=== PATIENT | female | born 1945 | race Caucasian/White ===

== ENCOUNTER 2020-03-02 09:26 | Inpatient (IN) | payer OTHER ==
[~2020-03-02] VITALS: Ht 162.6 cm; Wt 89.4 kg
[2020-03-02] VITALS (7 sets, daily range): BP systolic 104–147; BP diastolic 32–61
--- NOTE | ~2020-03-02 | HC ---
[facility] [place] [address] CONSULTATION Name: STARR SMITH Room #: 438-P ADM IN M.R.#: [id number] Admission: 03/02/20 Attend Phys: Devonte Lares Discharge: Date of : 47 Report #: [id number] THIS REPORT FOR: cc: Philippe Whitley MD, Kirk D. MD Smithson, David G. MD ~ CC: Devonte Lozano DATE OF SERVICE: 03/05/2020 HISTORY OF PRESENT ILLNESS: The patient is a 74-year-old white female with a history of obesity, diabetes mellitus, hypertension, who had a mechanical fall at home, trying to go to the bathroom. She was noted to have a right hip intertrochanteric fracture, underwent right hip IM nail fixation on 03/03/2020 and is limited to toe touch weightbearing right lower extremity. Postoperatively, she has had problems with anemia from 9.3, preoperatively 7.7 and now is 6.9 today. She is being closely monitored in this regard. She also has a history of compulsive water drinking and her sodium was down to 124 with improvement to 130. We are seeing her in rehabilitation medicine consultation. PAST MEDICAL HISTORY: Prior medical history includes obesity, BMI 30-34.9, hypertension, diabetes mellitus, hyperlipidemia, history of compulsive water drinking as noted above. PAST SURGICAL HISTORY: Includes a prior left ankle fusion. ALLERGIES: No known drug allergies. MEDICATIONS: Please see the full medication listing. SOCIAL HISTORY: She lives in a house, 2 steps in, did not utilize an assistive device. is there and can assist her and there is also a daughter that is closely involved. She has a walk-in, bathtub per her history. REVIEW OF SYSTEMS: No complaints of chest pain, shortness of breath or abdominal discomfort. She has some obvious concerns with her anemia. PHYSICAL EXAMINATION: GENERAL: She is a 74-year-old obese, pleasant female, in no obvious distress. VITAL SIGNS: Last recorded temperature 97.6, pulse 85, respirations 11, blood pressure 155/63. She is alert, follows basic 1 step commands. HEENT: Facies are symmetric. EXTREMITIES: She has functional range of motion of both upper extremities. Strength is grade 4-/5 to 4/5. DTRs are trace to 1. In her lower extremities, [facility] [address] [place] [address] CONSULTATION Name: STARR SMITH Room #: 438-P [facility] IN M.R.#: [id number] Admission: 03/02/20 Attend Phys: Devonte Lares Discharge: Date of : 47 Report #: [id number] no focal calf swelling. She has decreased movement of that left ankle with prior fusion as expected. She is able to dorsiflex the right ankle. Dressing in place over the right hip with ice applied. Appears to have good strength of that left lower extremity. She is currently mod assist with sit to stand. ASSESSMENT: A 74-year-old white female with the following problem list: 1. Right hip intertrochanteric fracture, status post intramedullary nail 03/03/2020, toe-touch weightbearing. 2. Significant postoperative anemia, hemoglobin 6.9. 3. History of compulsive water drinking. Sodium was down to 124 with improvement to 130. 4. Exogenous obesity, BMI 30-34.9. 5. Diabetes mellitus. 6. Prior left ankle fusion. 7. Hypertension. 8. Elevated lipids. PLAN: Insurance will be checked regarding an acute in-hospital inpatient rehabilitation stay. The patient specifically does not desire to go to a facility and the goal would be to go back to the home setting at a wheelchair/walker level with her assisting and she has close involvement by her daughter. She needs to improve as far as basic transfers, getting from the bed into the wheelchair and functional mobility and ADLs. She also has the multiple medical comorbidities with the anemia, compulsive water drinking, electrolyte abnormalities with hyponatremia and other above comorbidities. Insurance will be checked regarding an acute in-hospital inpatient rehabilitation cuellar stay as above and we will be glad to follow along with you. By: [id number] Torey Rivas MD /[facility]
--- NOTE | ~2020-03-02 | O ---
[facility] [place] [address] OPERATIVE REPORT Name: STARR SMITH Room #: 438-P ADM IN M.R.#: [id number] Admission: 03/02/20 Attend Phys: Devonte Lares Discharge: Date of : 47 Report #: [id number] THIS REPORT FOR: cc: Philippe Whitley MD, Kirk D. MD Kneidel, Matthew T. MD ~ CC: Devonte Lozano DATE OF SERVICE: 03/02/2020 PREOPERATIVE DIAGNOSIS: Left hand abscess. POSTOPERATIVE DIAGNOSIS: Left hand abscess. PROCEDURE: Left hand irrigation and debridement. SURGEON: Alvaro Lozano MD MOBILE MANAGER: Niurka Hoffmann. ANESTHESIA: General. ESTIMATED BLOOD LOSS: 5 mL. DRAINS: No drains. TOURNIQUET TIME: 15 minutes. DESCRIPTION OF PROCEDURE: The patient brought to the operating room where she was placed under general anesthesia. Once under adequate general anesthesia, her left upper extremity was prepped and draped in sterile manner. The extremity was elevated and tourniquet placed to 250 mmHg. The patient had an entrance wound volar to her third metacarpophalangeal joint. This was then excised with the skin. Abundant purulence did emanate from the wound once it was entered. This did extend down to the flexor tendon sheath. Dissection was carried down to the flexor tendon sheath of both the middle and index fingers for this appeared to extend to, these were then subsequently cultured and debridement was achieved with a rongeur and of any necrotic tissue. The wound was irrigated copiously with normal saline. The proximal and distal limbs of the zigzag incision were then closed with 3-0 nylon suture and the wound was packed with sterile saline silk gauze. Wound was dressed with 4 x 4s, Sof-Rol and Jairo. Tourniquet was let down at 15 minutes. Fingers were pink and warm [facility] [address] [place] [address] OPERATIVE REPORT Name: STARR SMITH Room #: [address] [place] [address] IN .R.#: [id number] Admission: 03/02/20 Attend Phys: Devonte Lares Discharge: Date of : 47 Report #: [id number] with good capillary refill. There were no complications from the procedure. The patient tolerated the procedure well and was to her room without incident. By: [id number] Alvaro Lozano MD /nt
--- NOTE | ~2020-03-02 | O ---
[facility] [place] [address] OPERATIVE REPORT Name: STARR SMITH Room #: 438-P [facility] IN M.R.#: [id number] Admission: 03/02/20 Attend Phys: Devonte Lares Discharge: Date of : 47 Report #: [id number] THIS REPORT FOR: cc: Philippe Whitley MD, Kirk D. MD Kneidel, Matthew T. MD ~ CC: Devonte Lozano DATE OF SERVICE: 03/03/2020 PREOPERATIVE DIAGNOSIS: Right hip intertrochanteric and subtrochanteric femur fracture. POSTOPERATIVE DIAGNOSIS: Right hip intertrochanteric and subtrochanteric femur fracture. PROCEDURE: Right hip and femur intramedullary nail. SURGEON: Dr. Alvaro Lozano. DIE CUTTER OPERATOR: None. ANESTHESIA: General. ESTIMATED BLOOD LOSS: 100 mL. DRAINS: No drains. TOURNIQUETS: No tourniquets. COMPLICATIONS: No complications. DESCRIPTION OF PROCEDURE: The patient brought to the operating room where she was placed under general anesthesia. Once under adequate general anesthesia, she was transferred onto the operative table. The right lower extremity was then placed into traction and initial images were taken, noting an intertrochanteric as well as a subtrochanteric femur fracture. The right hip was then prepped and draped in sterile manner. Utilizing fluoroscopy for guidance, the tip of the greater trochanter was identified and subsequently a 3 cm incision proximal to this was made. The greater trochanter was entered with a guide pin and a curved cannulated awl was then placed across the greater trochanter of the femur. A guidewire was then placed from this down the shaft of the femur. Once in place, sequential reaming from 8.5 mm to 12.5 mm was achieved. A long 11 mm Synthes trochanteric femoral nail was then placed. [facility] [address] [place] [address] OPERATIVE REPORT Name: STARR SMITH Room #: 438-P [facility] IN .R.#: [id number] Admission: 03/02/20 Attend Phys: Devonte Lares Discharge: Date of : 47 Report #: [id number] Utilizing the outrigger guide, a separate 2 cm incision was made over the compression screw region and a guidewire was then placed in a center-center position in the femoral head. Subsequently, this was measured at 100 mm. The blade for the trochanteric femoral nail was then placed into the center-center position of the femoral head. Excellent fixation was achieved. This was locked into place proximally with the proximal locking screw and distally utilizing fluoroscopy for guidance, 2 locking screws were placed in the static position utilizing perfect circles to place these through 2 small stab incisions. Two transverse locking screws were placed. Excellent fixation and alignment was achieved as verified under fluoroscopy. The wounds were then irrigated copiously and closed with 2-0 Vicryl in subcutaneous tissues and lilian were used for the skin. The wounds were dressed with Xeroform, 4 x 4s, and sterile soft compressive dressing was placed. There were no complications from the procedure. The patient tolerated the procedure well and went to the recovery room without incident. By: [id number] Alvaro Lozano MD /nt
[~2020-03-02 09:26] MED LIST: AMARYL4 MG PO; AMLODIPINE BESYL5 M1 PER TUBE; ASPIRIN EC81 M1 PO; B12INJ; CATAPRES0.1 MG PO; CELEXA20 MG PO; CITRATE OF MAG296 ML PO; CLOBETASOL EMOL15 GM TP; DIFLUCAN150 M1 PO; FISH OIL 1,0001 EAC5; GLYBURID-METFO1 EAC3 PO; LEVOTHYROXINE 0.1 MG PO; LISINOPRIL40 MG PO; MACROBID 100 M100 M1 PO; METFORMIN HCL500 MG PO; MOBIC15 MG PO; NIACIN 100MG T100 M1; OMEPRAZOLE20 MG PO; PRAVACHOL20 MG PO; SYNTHROID100 MCG PO; UNICOMPLEX M TA1 TA1 PO; XANAX 0.5 MG0.5 MG PO
[2020-03-02 10:41] LABS: ABSOLUTE NEUTROPHILS 6.2 thou/uL (1.4-8.2); BASOPHILS 0.3 % (0.0-2.0); EOSINOPHILS 1.9 % (0.0-3.0); HEMATOCRIT 36.9 % (37.0-47.0); HEMOGLOBIN 12.2 gm/dL (12.0-15.0); LYMPHOCYTES 12.4 % (24.0-44.0); MCH 32.8 pg (26.0-34.0); MCHC 33.1 g/dL (28.0-37.0); MCV 99.1 fL (80.0-100.0); MONOCYTES 7.1 % (1.0-8.0); PLATELET COUNT 155 thou/uL (150-400); POLYS 78.3 % (36.0-66.0); RBC 3.72 mil/uL (4.20-5.00); RDW 13.2 % (10.5-14.5); WBC 7.9 thou/uL (4.0-11.0)
[2020-03-02 10:53] LABS: CALCIUM 8.6 mg/dL (8.5-10.1); CREATININE 0.9 mg/dL (0.6-1.0); POTASSIUM 4.7 mmol/L (3.5-5.1)
--- NOTE | 2020-03-02 15:37 | NUR ---
PT ARRIVED ON THE UNIT, WITH DAUGHTER AT BEDSIDE. PT VSS AT THIS TIME, PAIN CONTROLLED WITH IV PAIN ANALGESIC THAT WAS GIVEN IN THE ER. PT HAS A RANGEL CATHETER. NURSE EDUCATED ON HOW TO USE THE CALL BUTTON. FALL PRECAUTIONS IN PLACE. DR. PATEL INFORMED THAT PT IS ON THE UNIT. WILL CONTINUE TO MONITOR.
[2020-03-02 16:38] LABS: ALBUMIN 3.2 g/dL (3.4-5.0); DIRECT BILIRUBIN 0.1 mg/dL (<0.1-0.2); TOTAL BILIRUBIN 0.5 mg/dL (0.2-1.0); TOTAL PROTEIN 6.7 g/dL (6.4-8.2)
--- NOTE | 2020-03-03 01:22 | NUR ---
ASSESSED AT START OF SHIFT 1900. PT A&OX4 C/O PAIN IN RT HIP. MANAGED BY IV MORPHINE. PT NPO AFTER MIDNIGHT FOR SX TOMORROW. FOLLEY CATH IN PLACE. PT REPOSITIONED FOR COMFORT. FALL PREC IN PLACE AND CALL LIGHT IN REACH WILL CONT TO MONITOR.
[2020-03-03 05:06] LABS: GLYCOHEMOGLOBIN (HGB A1C) 8.4 % (4.8-5.6)
[2020-03-03 05:26] VITALS: BP 123/43
[2020-03-03 06:37] LABS: HEMATOCRIT 29.5 % (37.0-47.0); MCH 33.6 pg (26.0-34.0); MCHC 33.6 g/dL (28.0-37.0); MCV 99.9 fL (80.0-100.0); PLATELET COUNT 145 thou/uL (150-400); RBC 2.95 mil/uL (4.20-5.00); RDW 13.3 % (10.5-14.5); WBC 5.8 thou/uL (4.0-11.0)
[2020-03-03 06:44] LABS: HEMOGLOBIN 9.9 gm/dL (12.0-15.0)
[2020-03-03 06:53] LABS: ALBUMIN 2.6 g/dL (3.4-5.0); CALCIUM 7.8 mg/dL (8.5-10.1); CREATININE 1.4 mg/dL (0.6-1.0); MAGNESIUM 1.5 mg/dL (1.8-2.4); PHOSPHORUS 4.6 mg/dL (2.5-4.9); POTASSIUM 4.8 mmol/L (3.5-5.1); TOTAL BILIRUBIN 0.6 mg/dL (0.2-1.0); TOTAL PROTEIN 5.6 g/dL (6.4-8.2)
--- NOTE | 2020-03-03 09:09 | EKG ---
[facility] [place] [address] ELECTROCARDIOGRAM REPORT Name: STARR SMITH Room #: 438-P ADM IN M.R.#: [id number] Admission: 03/02/20 Attend Phys: Devonte Lares Discharge: Date of : 47 Report #: [id number] THIS REPORT FOR: cc: Philippe Whitley MD, Kirk D. MD Lundgren, Craig H. MD [facility] ~ THIS REPORT FOR: //name// [facility] ED Test Date: 2020-03-02 Test Time: 10:15:54 Pat Name: STARR SMITH Department: Room: 438 Gender: F Cylinder Handler: RAMIREZ : 1945 Requested By: Semaj Perry Order Number: [id number] MD: Seferino Johnson Measurements Intervals [place] Rate: 58 P: 47 ID: 191 QRS: -2 QRSD: 91 T: 55 QT: 434 QTc: 427 Interpretive Statements Sinus rhythm Poor R wave progression Compared to ECG 11/03/2013 13:16:52 No significant change was found Electronically Signed On 03-03-2020 9:09:01 CDT by Seferino Johnson [email or web address] <ELECTRONICALLY SIGNED> By: Seferino Johnson MD, [facility] 03/03/20 0909 1015 1015 Seferino Johnson MD, [facility] /EPI
[2020-03-03 11:27] LABS: ABSOLUTE NEUTROPHILS 3.2 thou/uL (1.4-8.2); ANISOCYTOSIS SLIGHT; POIKILOCYTOSIS SLIGHT
--- NOTE | 2020-03-03 12:32 | NUR ---
ASSESSMENT: CM REVIEWED CHART AND SPOKE WITH PATIENT. PT IS ALERT AND ORIENTED X4. PT IS HERE FOR SRUGERY ON HER RIGHT HIP. PT REPORTS SHE LIVES IN A HOUSE WITH HER . PT REPORTS 2 STEPS WITH HANDRAILS TO ENTER AND NO STEPS SHE HAS TO USE ONCE INSIDE. PT REPORTS SHE HAS ALOT OF DME AT HOME. SHE REPORTS HAVING A WALKER, CANE, AND BEDSIDE COMMODE. PT REPORTS THEY HAVE A WALK IN SHOWER WITH [employer] BARS. PT REPORTS SHE HAS BEEN TO TWO DIFFERENCE SNFS IN THE PAST ([facility] AND [facility]). PT REPORTS SHE PREFERS NOT TO GO TO A SNF IF SHE DOES NOT HAVE TO. PT REPORTS SHE HAS ALSO HAD [facility] IN THE [facility]ST. PT IS TO HAVE SURGERY AND WILL SEE HOW PATIENT PROGRESSES WITH PT/OT. CM WILL CONTINUE TO FOLLOW.
--- NOTE | 2020-03-03 13:06 | NUR ---
RD consult received stating "other". Admit with fall at home, right hip fracture. NPO for surgical intervention. Hx DM, A1C is 8.4 indicating poor control. Hospital BG 204-265 and currently with ss insulin orders. Wt is obese, BMI 33.8. Low nutrition risk and will followup for diet education needs or concerns once pt more stable from orthopedic surgery in 24-48 hrs
[2020-03-03 15:09] LABS: HEMATOCRIT 29.6 % (37.0-47.0); MCH 33.7 pg (26.0-34.0); MCHC 33.9 g/dL (28.0-37.0); MCV 99.3 fL (80.0-100.0); RBC 2.98 mil/uL (4.20-5.00); RDW 13.5 % (10.5-14.5); WBC 7.4 thou/uL (4.0-11.0)
[2020-03-03 15:18] LABS: CALCIUM 8.1 mg/dL (8.5-10.1); CREATININE 1.5 mg/dL (0.6-1.0); POTASSIUM 4.4 mmol/L (3.5-5.1)
[2020-03-03 15:24] LABS: ALBUMIN 2.7 g/dL (3.4-5.0); TOTAL BILIRUBIN 0.6 mg/dL (0.2-1.0); TOTAL PROTEIN 5.9 g/dL (6.4-8.2)
--- NOTE | 2020-03-03 19:11 | NUR ---
Assumed care of pt. at 0700. Pt. is calm and cooperative. She continues to be miserable from NPO status and lab values show an increased level of dehydration. Magnesium and NS bolus given to counter dehydration. Pt. requests Fentanyl for pain at approproiate times. Pt. was taken for surgery at 1500.
[2020-03-03 20:10] VITALS: BP 126/61
[2020-03-03 21:00] VITALS: BP 150/38
[2020-03-03 22:00] VITALS: BP 150/51
[2020-03-04] VITALS: BP 135/53
--- NOTE | 2020-03-04 03:32 | NUR ---
PT ARRIVED FROM SX @1999 A&OX4. DRESSING IN RT HIP C/D/I WITH ICE PACK IN PLACE FOR COMFORT. VSS. IV INTACT AND FLUIDS STARTED. ABX GIVEN. EVENING MEDS GIVEN AND PT CAMILLE IT WELL. BLOODSUGAR CHECKED WITH INSULIN COVERAGE. PT SLEPT THROUGH THE NIGHT ON 2L OF O2 POST OP. FALL PREC IN PLACE. SCD'S ON BLE NO TEDHOSE. WILL CONT TO MONITOR.
[2020-03-04 03:40] VITALS: BP 151/54
[2020-03-04 05:41] LABS: ABSOLUTE NEUTROPHILS 9.8 thou/uL (1.4-8.2); HEMATOCRIT 26.7 % (37.0-47.0); HEMOGLOBIN 9.3 gm/dL (12.0-15.0); LYMPHOCYTES 4.5 % (24.0-44.0); MCH 34.7 pg (26.0-34.0); MCV 99.2 fL (80.0-100.0); MONOCYTES 3.2 % (1.0-8.0); PLATELET COUNT 131 thou/uL (150-400); POLYS 92.3 % (36.0-66.0); RBC 2.69 mil/uL (4.20-5.00); RDW 13.1 % (10.5-14.5); WBC 10.6 thou/uL (4.0-11.0)
[2020-03-04 06:02] LABS: ALBUMIN 2.6 g/dL (3.4-5.0); CALCIUM 7.9 mg/dL (8.5-10.1); CREATININE 1.2 mg/dL (0.6-1.0); DIRECT BILIRUBIN 0.2 mg/dL (<0.1-0.2); MAGNESIUM 2.2 mg/dL (1.8-2.4); PHOSPHORUS 4.3 mg/dL (2.5-4.9); POTASSIUM 5.3 mmol/L (3.5-5.1); TOTAL BILIRUBIN 0.5 mg/dL (0.2-1.0); TOTAL PROTEIN 5.6 g/dL (6.4-8.2)
[2020-03-04 07:45] VITALS: BP 144/43
[2020-03-04 16:01] LABS: HEMATOCRIT 22.3 % (37.0-47.0); HEMOGLOBIN 7.7 gm/dL (12.0-15.0)
[2020-03-04 16:11] LABS: CALCIUM 8.1 mg/dL (8.5-10.1); CREATININE 1.3 mg/dL (0.6-1.0); POTASSIUM 4.6 mmol/L (3.5-5.1)
[2020-03-04 18:22] VITALS: BP 134/44
[2020-03-04 20:15] VITALS: BP 138/72
--- NOTE | 2020-03-04 20:23 | NUR ---
Assumed care of patient at 0700. Patient is calm and cooperative. Pain managed with medication. IV became infiltrated and was replaced by the IV Team. Fall precautions in place.
[2020-03-05 01:06] LABS: GLYCOHEMOGLOBIN (HGB A1C) 7.9 % (4.8-5.6)
--- NOTE | 2020-03-05 02:28 | NUR ---
ASSESSED AT START OF SHIFT 1900. PT C/O PAIN. MANAGED BY PO PAIN MEDS. IV INTACT AND FLUIDS INFUSING. PT NOW ON A 1000ML OF FLUID RESTRICTION PER ORDER. ICE PACK ON RT HIP FOR COMFORT. FALL PREC IN PLACE AND WILL CONT TO MONITOR
[2020-03-05 04:00] VITALS: BP 155/63
[2020-03-05 06:15] LABS: ABSOLUTE NEUTROPHILS 5.4 thou/uL (1.4-8.2); RBC 2.02 mil/uL (4.20-5.00); WBC 7.2 thou/uL (4.0-11.0)
[2020-03-05 06:17] LABS: BASOPHILS 0.1 % (0.0-2.0); EOSINOPHILS 2.4 % (0.0-3.0); HEMATOCRIT 20.1 % (37.0-47.0); HEMOGLOBIN 6.9 gm/dL (12.0-15.0); MCH 34.3 pg (26.0-34.0); MCHC 34.5 g/dL (28.0-37.0); MCV 99.3 fL (80.0-100.0); MONOCYTES 9.7 % (1.0-8.0); PLATELET COUNT 119 thou/uL (150-400); POLYS 74.8 % (36.0-66.0); RDW 13.3 % (10.5-14.5)
[2020-03-05 06:24] LABS: CALCIUM 7.8 mg/dL (8.5-10.1); CREATININE 0.8 mg/dL (0.6-1.0); MAGNESIUM 1.9 mg/dL (1.8-2.4); PHOSPHORUS 2.5 mg/dL (2.5-4.9); POTASSIUM 4.4 mmol/L (3.5-5.1)
--- NOTE | 2020-03-05 13:43 | NUR ---
ON-GOING ASSESSMENT: CM REVIEWED CHART. PTS HEMOGLOBIN IS 6.9. CM DISCUSSED POSSIBLE DISCHARGE PLANS PT/OT RECOMMENDING POST ACUTE CARE. CM DISCUSSED WITH PATIENT AND SHE DOES NOT WANT TO GO TO A SNF BUT IS AGREEABLE FOR ACUTE REHAB HERE AT [facility]. CM SPOKE WITH ATTENDING AND CONSULT WAS PLACED FOR [facility]. [facility] IS EVALUATING PATIENT AND THEY REPORT THEY FEEL PATIENT IS A GOOD CANIDATE AND THEY WILL START TO SEEK INSURANCE AUTH. CM WILL CONTINUE TO FOLLOW TO ASSIST NEEDED.
--- NOTE | 2020-03-05 14:53 | NUR ---
PATIENT SEEN THIS DATE BY DR. LUTHER FOR REHAB CONSULT. PATIENT IS A CANDIDATE FOR ACUTE REHAB STAY AND IS AGREEABLE WITH PLAN. AUTHORIZATION REQUEST INITIATED THIS DATE FROM PATIENT'S INSURANCE FOR [facility] ADMISSION. WILL AWAIT RESPONSE. THANK YOU FOR THIS REFERRAL.
--- NOTE | 2020-03-05 18:27 | NUR ---
PT IS AOX4, VSS, CURRENTLY GETTING BLOOD TRANSFUSION. PT CALLS APPROPRATELY, FALL PRECAUTIONS IN PLACE. PAIN CONTROLLED WITH ORAL ANALGESIC. WILL CONT. TO MONITOR.
[2020-03-05 20:58] VITALS: BP 152/57
--- NOTE | 2020-03-06 04:07 | NUR ---
PT AOX4. PT REPORTS PAIN IN RIGHT HIP. PT RECEIVING PRN PO NORCO Q4HR AND PRN IV FENTANYL Q4HR. PT DENIES SOB ON ROOM AIR. PT REMAINS ON BEDREST WITH FREQUENT REPOSITIONING ENCOURAGED. PT REPORTS 'I JUST WANT TO REST'. PROVIDED REASSURANCE PT SAFETY, GOALS, AND COMFORT ARE PRIORITY. PT REFUSING TURNS DUE TO REPORTS OF COMFORT. PT TOLERATING PO INTAKE OF FLUIDS WITHOUT ISSUE. SENSATION INTACT TO ALL EXTREMITIES. PT DENIES NUMBNESS AND TINGLING. PT ENCOURAGED TO NOTIFY STAFF FOR ALL NEEDS. CALL LIGHT WITHIN REACH, BED ALARM ON, BED IN LOWEST POSITION, WILL CONTINUE TO MONITOR.
[2020-03-06 04:25] VITALS: BP 155/71
[2020-03-06 05:36] LABS: HEMATOCRIT 24.1 % (37.0-47.0); HEMOGLOBIN 8.1 gm/dL (12.0-15.0); MCH 33.2 pg (26.0-34.0); MCHC 33.7 g/dL (28.0-37.0); MCV 98.5 fL (80.0-100.0); RBC 2.45 mil/uL (4.20-5.00); RDW 14.2 % (10.5-14.5); WBC 5.9 thou/uL (4.0-11.0)
[2020-03-06 06:35] LABS: CALCIUM 7.9 mg/dL (8.5-10.1); CREATININE 0.6 mg/dL (0.6-1.0); POTASSIUM 4.2 mmol/L (3.5-5.1)
[2020-03-06 07:20] VITALS: BP 149/50
--- NOTE | 2020-03-06 12:03 | NUR ---
ON-GOING ASSESSMENT: CM REVIEWED CHART AND SPOKE WITH ATTENDING. PT IS STABLE TO DISCHARGE TO [facility] REHAB TODAY PENDING INSURANCE AUTH. CM SPOKE WITH [facility] LIASON WHO REPORTS THEY ARE JUST AWAITING A DECISION FROM INSURANCE AT THIS TIME. CM WILL CONTINUE TO FOLLOW TO ASSIST NEEDED.
--- NOTE | 2020-03-06 14:47 | NUR ---
CALL RECEIVED FROM LINDSEY AT [facility]. PATIENT HAS BEEN DENIED ACUTE REHAB STAY. LINDSEY STATED THAT REQUEST LACKS SUPPORT FOR ACUTE REHAB STAY AND THAT SNF WAS RECOMMENDED. IF PHYSICIAN WOULD LIKE TO COMPLETE PEER TO PEER CALL . REPAIR MILLER INFORMED IN VOICEMAIL. THANK YOU FOR THIS REFERRAL.
[2020-03-06 16:10] VITALS: BP 153/63
--- NOTE | 2020-03-06 16:23 | NUR ---
on-going assessment: CM REVIEWED CHART. CM RECEIVED A CALL FROM ACUTE REHAB STATING THE INSURANCE HAS DENIED ACUTE REHAB AND RECOMMENDING SNF. AN OPTIONAL PEER TO PEER IS OFFERED IF REQUESTED. CM NOTIFIED ATTENDING. CM SPOKE WITH PATIENT AND SHE STATES ALTHOUGH SHE IS CONTEMPLATING IT SHE DOES FEEL SHE NEEDS TO GO TO A SNF AND WANTED A REFERRAL SENT TO [facility] WHERE SHE HAS BEEN BEFORE. CM NOTIFIED RONNY PEREZ AND FAXED REFERRAL [phone]. CM ALSO PROVIDED PT WITH A SNF LIST FOR HER TO REVIEW FURTHER. CM WILL CONTINUE TO FOLLOW TO ASSIST NEEDED.
--- NOTE | 2020-03-06 16:45 | NUR ---
PT IS AXO4, VSS, PAIN IN RIGHT HIP CONTROLLED WITH PAIN ANALGESIC. PT DRESSING ON RIGHT HIP WAS CHANGED AND REMAIN CDI. PT CALLS APPROPRIATELY, FALL PRECAUTIONS IN PLACE. IV IS SL/ CALL LIGHT IN PLACE. WILL CONTINUE TO MONITOR.
[2020-03-06 22:37] VITALS: BP 169/57
[2020-03-07 06:21] VITALS: BP 170/59
--- NOTE | 2020-03-07 07:52 | NUR ---
PT AOX4. PT REPORTS PAIN IN RIGHT HIP. PAIN NOTED TO WORSEN WITH MOVEMENT AND REPOSITIONING. PT RECEIVING PRN PO NORCO Q4HR AND PRN IV FENTANYL Q4HR. PT CONTINUES TO REST IN BED THROUGHOUT SHIFT. FREQUENT REPOSITIONING ENCOURAGED. PT REFUSING TURNS WHEN SLEEPING. PT TOLERATING PO INTAKE OF FLUIDS AND CARB CONTROLLED DIET. PT NOTED TO HAVE 2+ PITTING EDEMA TO RLE AND NONPITTING 1+ EDEMA TO LLE. PT ENCOURAGED TO NOTIFY STAFF FOR ALL NEEDS. CALL LIGHT WITHIN REACH, BED ALARM ON, BED IN LOWEST POSITION. WILL CONTINUE TO MONITOR.
[2020-03-07 08:21] VITALS: BP 148/46
[2020-03-07 10:33] LABS: HEMATOCRIT 25.4 % (37.0-47.0); HEMOGLOBIN 8.7 gm/dL (12.0-15.0)
[2020-03-07] MEDS ORDERED: KEFLEX500 M1 PO (10:34)
[2020-03-07] MEDS ORDERED: MIRALAX17 GM PO (10:34)
[2020-03-07] MEDS ORDERED: XANAX 0.5 MG0.5 MG PO (10:34)
[2020-03-07] MEDS ORDERED: LITE COAT ASPI325 MG PO (10:43)
[2020-03-07] MEDS ORDERED: PRINIVIL10 MG PO (10:43)
[2020-03-07] MEDS ORDERED: HYDROCODON-ACE1 EAC7 PO (10:43)
[2020-03-07] MEDS ORDERED: LANTUS SUBQ (10:43)
--- NOTE | 2020-03-07 13:10 | NUR ---
on-going assessment: CM SPOKE WITH PATIENT AND SHE IS AGREEABLE WITH [facility]. CM REACHED OUT TO CHRIS JEFFERSON AT [facility] WHO REPORTS THAT THEY HAVE INSURANCE AUTH AND CAN ACCEPT PATIENT TODAY. CM NOTIFIED BEDSIDE RN WELL PATIENT AND HER DAUGHTER WHO IS AT THE BEDSIDE. CHART COPY WAS ORDERED. CM FAXED D/C ORDERS TO [facility] AND CONFIRMED THEY RECEIVED IT. [facility] PROVIDED BEDSIDE RN WITH THE NUMBER FOR REPORT. TRANSPORTATION HAS BEEN ARRANGED FOR 1500. BEDSIDE RN AND PT ARE AWARE. PT REPORTS NO FURTHER NEEDS FROM . CASE CLOSED.
[2020-03-07 14:07] VITALS: BP 159/65
[2020-03-07] MEDS ORDERED: GLIPIZIDE 5 MG T5 MG PO (14:40)
--- NOTE | 2020-03-07 16:00 | NUR ---
Assumed care of pt. at 0700. Pt. is calm and cooperative. She is excited to discharge. Report was called to Vinayak Li and I spoke to Natalie OBRIEN to give report. Pt. was picked up by transport at 1600. Pt. left with all belongings and daughter.
== END 2020-03-07 16:00 | DRG 480 ==
LOC: ER 09:26 → 4S 11:06 → EROBS 11:06 → 4S 13:29
PROVIDERS: Anesthesiology; Emergency Medicine; Hospitalist; Internal Medicine; Orthopaedic Surgery Foot and Ankle Surgery; ADMIT Hospitalist; ATTEND Hospitalist
PROC: 0QH604Z Insertion of Internal Fixation Device into Right Upper Femur, Open Approach (ICD-10-PCS; principal; 2020-03-03)
PROC: 30233N1 Transfusion of Nonautologous Red Blood Cells into Peripheral Vein, Percutaneous Approach (ICD-10-PCS; 2020-03-05)
DX: S72.141A Displaced intertrochanteric fracture of right femur, initial encounter for closed fracture (principal); N17.0 Acute kidney failure with tubular necrosis; E43 Unspecified severe protein-calorie malnutrition; E87.1 Hypo-osmolality and hyponatremia; D62 Acute posthemorrhagic anemia; N39.0 Urinary tract infection, site not specified; S72.21XA Displaced subtrochanteric fracture of right femur, initial encounter for closed fracture; I10 Essential (primary) hypertension; E11.9 Type 2 diabetes mellitus without complications; E78.5 Hyperlipidemia, unspecified; E66.9 Obesity, unspecified; F41.9 Anxiety disorder, unspecified; K59.00 Constipation, unspecified; F32.9 Major depressive disorder, single episode, unspecified; M19.90 Unspecified osteoarthritis, unspecified site; Z20.828 Contact with and (suspected) exposure to other viral communicable diseases; E66.09 Other obesity due to excess calories; Z68.33 Body mass index [BMI] 33.0-33.9, adult; Z83.3 Family history of diabetes mellitus; Z80.1 Family history of malignant neoplasm of trachea, bronchus and lung; Z87.891 Personal history of nicotine dependence; Z79.82 Long term (current) use of aspirin; Z79.899 Other long term (current) drug therapy; Z47.89 Encounter for other orthopedic aftercare; W18.39XA Other fall on same level, initial encounter; Y93.89 Activity, other specified; Y92.091 Bathroom in other non-institutional residence as the place of occurrence of the external cause; Y99.8 Other external cause status
CPT/HCPCS: 10195; 50010; 50101; 50133; 50386; 50635; 51412; 51538; 52304; 56524; 57092; 5741; 5748; 57862; 57899; 62110; 62900; 70005

== ENCOUNTER 2020-07-10 16:44 | Inpatient (IN) | payer OTHER ==
[~2020-07-10] VITALS: Ht 162.6 cm; Wt 86.2 kg
[~2020-07-10 16:44] MED LIST changes: +ESOMEPRAZOLE MA20 MG PO; -FISH OIL 1,0001 EAC5; +FISH OIL 1,0001 EAC5 PO; +GLIPIZIDE 5 MG T5 MG PO; +HYDROCODON-ACE1 EAC7 PO; +KEFLEX500 M1 PO; +LANTUS SUBQ; +LITE COAT ASPI325 MG PO; +MIRALAX17 GM PO; -NIACIN 100MG T100 M1; +NIACIN 100MG T100 M1 PO; -OMEPRAZOLE20 MG PO; +PRINIVIL10 MG PO
[2020-07-10 16:59] VITALS: BP 139/57
[2020-07-10 20:03] LABS: ABSOLUTE NEUTROPHILS 7.1 thou/uL (1.4-8.2); BASOPHILS 0.1 % (0.0-2.0); EOSINOPHILS 0.5 % (0.0-3.0); HEMATOCRIT 31.4 % (37.0-47.0); HEMOGLOBIN 10.4 gm/dL (12.0-15.0); LYMPHOCYTES 10.1 % (24.0-44.0); MCH 31.8 pg (26.0-34.0); MCHC 33.1 g/dL (28.0-37.0); MCV 96.2 fL (80.0-100.0); MONOCYTES 6.7 % (1.0-8.0); PLATELET COUNT 184 thou/uL (150-400); POLYS 82.6 % (36.0-66.0); RBC 3.26 mil/uL (4.20-5.00); RDW 16.8 % (10.5-14.5); WBC 8.7 thou/uL (4.0-11.0)
[2020-07-10 20:12] LABS: CALCIUM 9.3 mg/dL (8.5-10.1); CREATININE 1.1 mg/dL (0.6-1.0); POTASSIUM 4.6 mmol/L (3.5-5.1)
[2020-07-10 20:50] VITALS: BP 139/57
[2020-07-10 21:03] LABS: URINE BILIRUBIN NEGATIVE (Negative); URINE BLOOD NEGATIVE (Negative); URINE CLARITY CLEAR; URINE COLOR YELLOW; URINE GLUCOSE-RANDOM* NEGATIVE (Negative); URINE KETONES 1+ (Negative); URINE NITRITE-REFLEX NEGATIVE (Negative); URINE PROTEIN (DIPSTICK) NEGATIVE (Negative); URINE UROBILINOGEN 0.2 E.U./dl (0.2-1.0)
[2020-07-10 21:04] LABS: URINE LEUKOCYTES-REFLEX 2+ (Negative)
[2020-07-10 21:47] VITALS: BP 139/57
[2020-07-10 21:48] LABS: HYALINE CASTS 0-3 Few /LPF (None Seen); MUCUS 0-3 Light strn/LPF (None Seen); SQUAMOUS None Seen /LPF (0-3); URINE RBC None Seen /HPF (0-2); URINE WBC-REFLEX 6-15 Few /HPF (0-5)
[2020-07-10 21:49] LABS: BACTERIA-REFLEX 1-9 Few /HPF (None Seen); CRYSTALS None Seen /LPF (None Seen)
[2020-07-10 21:50] VITALS: BP 146/56
[2020-07-11 04:08] VITALS: BP 166/62
[2020-07-11 05:50] LABS: INR 1.2; PROTIME 11.8 Seconds (9.3-11.4)
[2020-07-11 05:53] LABS: HEMATOCRIT 29.6 % (37.0-47.0); HEMOGLOBIN 9.8 gm/dL (12.0-15.0); MCH 31.6 pg (26.0-34.0); MCV 95.9 fL (80.0-100.0); RBC 3.09 mil/uL (4.20-5.00); RDW 16.9 % (10.5-14.5); WBC 7.1 thou/uL (4.0-11.0)
--- NOTE | 2020-07-11 05:59 | NUR ---
PATIENT ALERT AND ORIENTED X4. BADLY BRUISED FROM PREVIOUS FALLS AT HOME. NS INFUSING PER ORDER. COVID TEST FOR SURGERY DONE IN ED AND IS NEGATIVE. HAS BEEN NPO SINCE 2358 ON 07/10/20. BS MONITORED PER ORDER. RESTING QUIETLY. HAS BEEN MEDICATED X2 FOR PAIN. ICE PACK PLACED X2 PER REQUEST.
[2020-07-11 06:08] LABS: CALCIUM 8.8 mg/dL (8.5-10.1); CREATININE 0.8 mg/dL (0.6-1.0); POTASSIUM 3.9 mmol/L (3.5-5.1)
[2020-07-11 08:05] VITALS: BP 155/70
--- NOTE | 2020-07-11 12:54 | NUR ---
Assumed care of pt at 0700. Pt a&ox4. Pain controlled with prn pain meds. IVF infusing. Mckeon catheter in place. Surgery scheduled for tomorrow morning (07/12) at 0830. Pt and pt's family notified. Fall precautions in place. Call light within reach. Will continue to monitor.
--- NOTE | 2020-07-11 15:17 | EKG ---
[address] [place] [address] ELECTROCARDIOGRAM REPORT Name: STARR SMITH Room #: 444-P ADM IN M.R.#: [id number] Admission: 07/10/20 Attend Phys: Ga Raymundo MD Discharge: Date of : 47 Report #: [id number] [facility] ED Test Date: 2020-07-10 Test Time: 21:13:30 Pat Name: STARR SMITH Department: Room: 444 Gender: F It Account Manager: RADHA : 1945 Requested By: Sina Alvarado Order Number: [id number] MD: Seferino Johnson Measurements Intervals [place] Rate: 94 P: 58 VT: 165 QRS: -5 QRSD: 86 T: 226 QT: 350 QTc: 438 Interpretive Statements Sinus rhythm Poor R wave progression Compared to ECG 03/02/2020 10:15:54 No significant change was found Electronically Signed On 07-11-2020 15:17:48 ANTENNA SPECIALIST by Seferino Johnson [email or web address] <ELECTRONICALLY SIGNED> By: Seferino Johnson MD, [facility] 07/11/20 1517 12 12 Seferino Johnson MD, [facility] /EPI
[2020-07-11 16:40] VITALS: BP 156/70
[2020-07-11 19:04] VITALS: BP 177/77
[2020-07-12 03:38] VITALS: BP 170/73
--- NOTE | 2020-07-12 03:52 | NUR ---
ASSUMED PT CARE AT 1900.PT C/O PAIN ON HER HIP,MANAGED WITH MED.PT HAS BLACKEYES AND MULTIPLE BRUISING ON HER AR AND THIGH FROM HER FALL.RANGEL CATH TO DD.PT NPO AT THIS TIME FOR SURGERY LATER IN THE DAY.CALL LIGHT WITHIN REACH.
[2020-07-12 04:59] LABS: ALBUMIN 2.7 g/dL (3.4-5.0); CALCIUM 8.8 mg/dL (8.5-10.1); CREATININE 0.6 mg/dL (0.6-1.0); PHOSPHORUS 2.2 mg/dL (2.6-4.7); POTASSIUM 3.8 mmol/L (3.5-5.1)
[2020-07-12 08:17] VITALS: BP 188/85
[2020-07-12 11:48] VITALS: BP 129/61
[2020-07-12 12:01] VITALS: BP 123/62
[2020-07-12 14:11] LABS: ABSOLUTE NEUTROPHILS 13.2 thou/uL (1.4-8.2); BASOPHILS 0.1 % (0.0-2.0); HEMATOCRIT 28.2 % (37.0-47.0); HEMOGLOBIN 8.9 gm/dL (12.0-15.0); LYMPHOCYTES 3.1 % (24.0-44.0); MCH 30.7 pg (26.0-34.0); MCHC 31.7 g/dL (28.0-37.0); MCV 96.9 fL (80.0-100.0); MONOCYTES 3.2 % (1.0-8.0); PLATELET COUNT 175 thou/uL (150-400); POLYS 93.6 % (36.0-66.0); RBC 2.91 mil/uL (4.20-5.00)
[2020-07-12 15:55] VITALS: BP 105/56
--- NOTE | 2020-07-12 19:15 | NUR ---
PT CARE ASSUMED AT 0700. A&Ox4. WENT TO SURGERY AT 0827 BACK AT 1230. IV PATENT WITH NO REDNESS OR EDEMA, FLUIDS INFUSING. ABDUCTOR PILLOW IN PLACE. PAIN CONTROLLED WITH PAIN MEDICATION ON BOARD. RANGEL IN PLACE. ACHS WITH SLIDING SCALE IN PLACE. [facility], IN PLACE. FALL PROTOCOL IN PLACE. BRUISES ALL OVER THE BODY. LAST BM 07/10 CALL LIGHT IN REACH. WILL CONTINUE TO MONITOR.
[2020-07-12 20:23] VITALS: BP 126/52
--- NOTE | 2020-07-13 00:12 | NUR ---
PT C/O PAIN ON HER R HIP.MANAGED WITH MED.DRSG TO HER R HIP WITH DRY RED BLOOD.DRSG INTACT.ICE APPLIED TO THE SITE.PT VOICED CONCERN ABOUT THE AMOUNT OF INSULIN SHE IS RECEIVING AT THE HOSPITAL,PT STATED THAT SHE DOESN'T THINK THAT HER INSULIN SCHEDULE IS SAME WHAT SHE TAKES AT HOME.PT STATED THAT SHE HAS TALKED WITH HER DTR AND SHE WILL COME UP HERE LATER TODAY TO FIGURE THINGS OUT.PT REPOSITIONED WHILE IN BED.RANGEL CATH TO DD.PT RESTING ON HER BED AT THIS TIME.CALL LIGHT WITHIN REACH.
[2020-07-13 07:50] VITALS: BP 143/62
[2020-07-13 15:45] VITALS: BP 146/65
[2020-07-13 20:35] VITALS: BP 143/59
[2020-07-14 04:00] VITALS: BP 130/69
--- NOTE | 2020-07-14 05:36 | NUR ---
PT LYING IN BED. LORTAB PROVIDING PAIN RELIEF. RESTING COMFORTABLY. NO NEEDS VOICED. CALL LIGHT WITHIN REACH. FREQUENT OBSERVATION.
[2020-07-14 06:07] LABS: MCV 95.5 fL (80.0-100.0); RBC 1.8 mil/uL (4.20-5.00); RDW 16.4 % (10.5-14.5)
[2020-07-14 06:08] LABS: MCH 31.7 pg (26.0-34.0); MCHC 33.2 g/dL (28.0-37.0); WBC 7.7 thou/uL (4.0-11.0)
[2020-07-14 06:13] LABS: HEMATOCRIT 17.2 % (37.0-47.0); HEMOGLOBIN 5.7 gm/dL (12.0-15.0)
[2020-07-14 07:35] VITALS: BP 142/45
[2020-07-14 09:08] VITALS: BP 138/60; BP 142/60; BP 142/62; BP 144/58
--- NOTE | 2020-07-14 11:03 | NUR ---
Assumed care of pt at 0700. Pain controlled with prn pain meds. Dressing c/d/i. Blood transufion in progress. Family at bedside. Awaiting placement possibly tomorrow (07/14). Call light within reach. Will continue to monitor.
[2020-07-14 14:51] VITALS: BP 136/58; BP 138/54; BP 138/64; BP 139/56; BP 142/62
[2020-07-14 16:10] VITALS: BP 129/70
--- NOTE | 2020-07-14 16:54 | NUR ---
ASSESSMENT: CM REVIEWED CHART AND SPOKE WITH PT. PT WAS ADMITTED FROM HOME WHERE SHE LIVES WITH HER . PT HAS TWO STEPS TO ENTER AND NO STEPS ONCE INSIDE. PT HAS A WALKER/CANE/COMMODE. PT HAS BEEN TO [facility] IN THE PAST FOR SNF [facility] AND HAS HAD [facility] IN THE PAST. CM DISCUSSED ROLE. RECOMMENDATION IS FOR SNF. PT REPORTS SHE IS NOT WANTING TO GO TO [facility] AND LIKELY NOT [facility]. CONSULTED HAS BEEN PLACED FOR [facility] ACUTE REHAB. CM DISCUSSED WELL OTHER SNF OPTIONS IF CANNOT ACCEPT. PT IS RECEIVING ONE UNIT BLOOD TODAY. WILL AWAIT FURTHER INPUT FROM . CM ALSO PROVIDED DAUGHTER AND PT LIST OF SNF FACILITIES WHO ARE IN NETWORK FOR THEM TO REVIEW.
[2020-07-14 19:13] LABS: HEMATOCRIT 25.2 % (37.0-47.0)
[2020-07-14 19:15] VITALS: BP 156/50
[2020-07-14 19:27] LABS: HEMOGLOBIN 8.5 gm/dL (12.0-15.0)
--- NOTE | 2020-07-15 00:11 | NUR ---
PT WAS OBSERVED LYING IN BED WATCHING TV AT THE START OF SHIFT.DRS TO HER R HIP WITH DRY SEROSANGUINEOUS DRAINAGE.DRSG CHANGED.PT'S PAIN MANAGED WITH PO MED.HIP PRECAUTION IN PLACE.CALL LIGHT WITHIN REACH.
[2020-07-15 04:48] VITALS: BP 170/58
[2020-07-15 07:54] VITALS: BP 157/57
--- NOTE | 2020-07-15 08:31 | HC ---
[facility] [place] [address] CONSULTATION Name: STARR SMITH Room #: 444-P ADM IN M.R.#: [id number] Admission: 07/10/20 Attend Phys: Ga Raymundo MD Discharge: Date of : 46 Report #: [id number] THIS REPORT FOR: cc: Suzanna Templeton Shanna R. DO Deardorff, Valerie A. MD ~ DATE OF SERVICE: 07/11/2020 REASON FOR CONSULTATION: Right hip fracture. HISTORY OF PRESENT ILLNESS: The patient is a 75-year-old female who previously sustained a right intertrochanteric femur fracture that was treated with an intramedullary nail in February 2020. She reports spending a few weeks in rehab and then was at home doing fairly well using a walker, when her walker broke on Tuesday and she fell forward. She complained of significant right hip pain, but did not want to trouble her family, so she did not come in immediately. She came in yesterday with difficulty ambulating. Denied loss of consciousness and complains only of right hip pain. REVIEW OF SYSTEMS: NEUROLOGIC: Denies numbness or tingling. MUSCULOSKELETAL: Denies any other extremity pain, although does report left great toe swelling without significant pain and multiple bruises predominantly over her right upper extremity and periorbital areas bilaterally. PAST MEDICAL HISTORY: Significant for diabetes, hypertension, and obesity. ALLERGIES: MORPHINE. She also reports a SULFA ALLERGY. MEDICATIONS: Reported medications include [place]-3, Niacin, omeprazole, metformin, multivitamin, pravastatin, citalopram, clobetasol, and levothyroxine. PAST SURGICAL HISTORY: Apparently left hand abscess 03/02/2020, right hip fracture 03/03/2020, tonsillectomy, and cholecystectomy. SOCIAL HISTORY: She denies smoking, denies drinking alcohol. She lives with her . Previous to her hip fracture in February, did not use any ambulatory devices. 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 Before that, she worked at [employer]. LABORATORY STUDIES: Done on 07/11/2020 show a white blood cell count of 7.1, hemoglobin 9.8, hematocrit 29.6, and platelet count 167. INR is 1.2. Chemistry is grossly normal with a slightly low sodium at 129. COVID negative. PHYSICAL EXAMINATION: [address] [address] CONSULTATION Name: STARR SMITH Room #: 444-P [facility] IN ..#: [id number] Admission: 07/10/20 Attend Phys: Ga Raymundo MD Discharge: Date of : 46 Report #: [id number] GENERAL: The patient is alert and oriented. She interacts appropriately. She is a well-developed and well-nourished female. She is lying in her hospital bed. VITAL SIGNS: Most recent vital signs show a temperature of 36.6 degrees centigrade, heart rate 114, respiratory rate 18, blood pressure 155/70, and pulse oximetry is 97% on room air. EXTREMITIES: Examination of bilateral upper extremities, the skin is clean, dry, and intact. She has a significant amount of ecchymosis on her entire right upper extremity, patchy ecchymosis on her left. Gross strength and stability is intact. She has brisk capillary refill to all digits. She grossly moves her bilateral shoulders, elbows, forearms, wrists and hands without pain. There is no tenderness to palpation throughout the entire bilateral upper extremities. Right lower extremity examination, sensation is intact to light touch throughout. She has brisk capillary refill. There is no tenderness to palpation throughout the right knee, leg, ankle, or foot. No pain with range of motion of the right knee, leg, ankle or foot. She does have some patchy small areas of ecchymosis on the right knee. These are nontender. She has grossly normal strength and stability. She has significant pain with attempted range of motion. Left lower extremity exam, skin is clean, dry, and intact. She has a significant amount of ecchymosis on her great toe without tenderness. Grossly normal strength and stability. No tenderness to palpation throughout the entire left lower extremity. No pain with range of motion of the knee, leg, ankle, or foot or hip. Strength and stability is grossly intact. IMAGING: AP pelvis shows a cephalomedullary device with what appears to be a healed intertrochanteric femur fracture with what appears to be a new femoral neck fracture and superior cutout of the implant. Lateral of the hip and an oblique of the distal femur shows a long cephalomedullary nail with locking screws that appear to be well positioned, although this is a suboptimal x-ray. 3 views of the left foot show a distal nail, which appears to be holding a tibiotalar fusion with some loosening. There may be a chronic nonunion. There does not appear to be any great toe fracture. IMPRESSION AND PLAN: Right femoral neck fracture with hardware cutout. The recommended treatment would be removal of the hardware and hemiarthroplasty. We discussed the typical procedure as well as postoperative course. The risks, benefits, alternatives, and complications were discussed including, but not limited to, blood clots, decreased ambulatory level, infection, damage to vessels or nerves, hardware problems, leg length inequality, and hip dislocation. Questions were encouraged and answered to the best of my ability. [facility] [address] [place] [address] CONSULTATION Name: STARR SMITH Room #: 444-P ADM IN M.R.#: [id number] Admission: 07/10/20 Attend Phys: Ga Raymundo MD Discharge: Date of : 46 Report #: [id number] We discussed most likely this will be performed tomorrow by Dr. Lozano or myself. <ELECTRONICALLY SIGNED> By: Nisreen Luciano MD 07/15/20 0831 1252 1406 Nisreen Luciano MD /nt
[2020-07-15] MEDS ORDERED: ENOXAPARIN40 MG/0.1 SUBQ (08:33)
[2020-07-15] MEDS ORDERED: NORCO 7.5-3251 EACH PO (08:34)
--- NOTE | 2020-07-15 09:39 | NUR ---
Assumed care of pt at 0700. Hg 8.5 after 2 units infused yesterday. A&ox4. Q2h turn. Possible d/c to rehab ot skilled today. Pain controlled with prn pain meds. Dressing c/d/i. Call light within reach. Fall precautions in place. Will continue to monitor.
--- NOTE | 2020-07-15 11:35 | NUR ---
PT IS A CANDIDATE FOR [facility]. BEGAN INSURANCE AUTHORIZATION PROCESS
--- NOTE | 2020-07-15 13:20 | NUR ---
ON-GOING ASSESSMENT: [facility] REVIEWED CHART AND SPOKE WITH ATTENDING. PT IS STABLE FOR DISCHARGE. [facility] HAS EVALUATED PT AND REPORTS THEY HAVE STARTED THE AUTH PROCESS AND HAD SPOKEN WITH PTS DAUGHTER. [facility] REACHED OUT TO PTS DAUGHTER LATOYA AND SHE HAS REVIEWED SNF LIST AND REQUESTED THAT HER TOP TWO SNFS ARE [facility] AND [facility]. SHE STATED SHE WANTS TO SEE IF PTS INSURANCE WILL APPROVE FIRST THAT IS HER FIRST CHOICE AND THEN IF NOT WOULD CONSIDER THOSE SNFS. [facility] NOTIFIED ATTENDING. [facility] ALSO FAXED REFERRAL TO [facility]. AWAITING FURTHER INPUT FROM [facility] PENDING AUTH AT THIS TIME. BEDSIDE RN AWARE.
[2020-07-15 16:01] VITALS: BP 141/68
[2020-07-15 19:24] VITALS: BP 134/54
--- NOTE | 2020-07-16 03:35 | NUR ---
ASSUMED PT CARE AT 1900.NEW OPEN AREA TO HER L BUTTOCK,Sherine DOUGLAS APPLIED.PT REPOSITIONED WHILE IN BED.DRSG TO HER R HIP WITH SEROSANGUINEOUS DRAINAGE. DRSG CHANGED.PT UP TO THE [facility] WITH ASSIST X1/GAIT BELT AND WALKER.PT REF TO TAKE HER SHORT ACTING INSULIN TONIGHT,SHE STATED THAT SHE DOES NOT TAKE THEM AT NIGHT.PT AGREED TO TAKE ONLY 8UNITS OF LANTUS AT HS.SHE STATED THAT SHE ONLY TAKES LANTUS AT HS.PT'S PAIN MANAGED WITH PO MED.PT SLEEPING ON HER BED AT THIS TIME.CALL LIGHT WITHIN REACH.
[2020-07-16 07:30] VITALS: BP 161/61
--- NOTE | 2020-07-16 08:38 | NUR ---
ASSUMED CARE OF PATIENT SHE IS ALERT XS 4 NO PAIN OR RESP DISTRESS. TOOK AM MEDS PT IS WALKING WITH THERAPY.
[2020-07-16 10:21] LABS: HEMATOCRIT 27.9 % (37.0-47.0); HEMOGLOBIN 9.3 gm/dL (12.0-15.0)
--- NOTE | 2020-07-16 10:27 | NUR ---
ON-GOING ASSESSMENT: [facility] REVIEWED CHART. [facility] REACHED OUT TO LIAGAVINO AT [facility] WHO IS NOW STATING THAT DUE TO ALL HER REFERRALS SHE WILL NOT HAVE A SNF BED AVAILABLE FOR PATIENT LIKELY UNTIL 2-3 DAYS. [facility]ASE REACHED OUT TO PTS DAUGHTER WHO WANTED TO SEE IF [facility] CAN ACCEPT HER OR WOULD LIKE [facility]AL [facility]. [facility] SPOKE WITH [facility] WHO REPORTS THEY RECEIVED REFERRAL BUT UNSURE OF THEIR BED STATUS AND WILL GET BACK TO [facility]. CM ALSO FAXED REFERRAL TO [facility] AND AWAITING INPUT AT THIS TIME.
--- NOTE | 2020-07-16 11:51 | NUR ---
COVID 19 TEST TO RIGHT NARE AT THIS TIME TAKEN TO LAB.
--- NOTE | 2020-07-16 15:45 | NUR ---
ON-GOING ASSESSMENT: [facility]ASE SPOKE WITH SOWMYA JEFFERSON AT [facility] WHO REPORTS THEY CAN ACCEPT PT TO SNF TODAY BUT NEED ANOTHER NEGATIVE COVID TEST PRIOR TO ACCEPTING. CM NOTIFIED BEDSIDE RN. AWAITING COVID TEST RESULT. TENTATIVE D/C SCHEDULED FOR 0. CM FAXED D/C ORDERS TO [facility] AND CONFIRMED THEY RECEIVED IT. CHART COPY WAS ORDERED. CM NOTIFIED PT AND HER DAUGHTER LATOYA. AWAITING COVID RESULT AT THIS TIME. BEDSIDE RN HAS THE NUMBER FOR REPORT.
[2020-07-16 15:50] VITALS: BP 130/50
--- NOTE | 2020-07-16 20:03 | NUR ---
SURGICAL DRESSING TO RIGHT HIP CHANGED 2 SITES TOP SITE WITH 39 VALENTE AREA IS BRUISED AND WEEPING. LOWER SITE HAS 11 VALENTE AND AREA IS BRUISED BUT WELL APPROXIMATED. PT IS PLEASANT AND COOPERATIVE WITH CARE.
[2020-07-16 20:19] VITALS: BP 137/23
--- NOTE | 2020-07-17 05:12 | NUR ---
PT'S DRSG CHANGED AT START OF SHIFT.DRSG ON HER R HIP OBSERVED TO HAVE SEROSANGUINEOUS DRAINAGE.PT C/O PAIN,MANGED WITH MED.PT LOOKING FORWARD TO BE DC'D LATER IN THE DAY.CALL LIGHT WITHIN REACH.
[2020-07-17 08:40] VITALS: BP 149/61
[2020-07-17 08:41] VITALS: BP 149/61
--- NOTE | 2020-07-17 09:01 | NUR ---
ON-GOING ASSESSMENT: CM REVIEWED CHART. PTS COVID TEST CAME BACK NEGATIVE AND CM NOTIFIED [facility]. TRANSPORTATION HAS BEEN ARRANGED FOR 1100. CM NOTIFIED PT AND BEDSIDE RN. PT REPORTS HER DAUGHTER IS ON HER WAY HERE [place] IS GOING TO NOTIFY HER. FACILITY ALREADY HAS ORDERS AND CHART COPY WAS MADE. CASE CLOSED.
[2020-07-17] MEDS ORDERED: FREESTYLE LIBR1 EAC2 MISCELL (09:39)
--- NOTE | 2020-07-24 15:36 | O ---
[facility] [place] [address] [address] OPERATIVE REPORT Name: STARR SMITH Room #: 444-P [facility] IN M.R.#: [id number] Admission: 07/10/20 Attend Phys: Ga Raymundo MD Discharge: 07/17/20 Date of : 47 Report #: [id number] THIS REPORT FOR: cc: Suzanna Templeton Shanna R. DO Kneidel, Matthew T. MD ~ DATE OF SERVICE: 07/12/2020 PREOPERATIVE DIAGNOSES: 1. Right femoral neck fracture. 2. Right femur retained hardware. POSTOPERATIVE DIAGNOSES:. 1. Right femoral neck fracture. 2. Right femur retained hardware. PROCEDURE: 1. Right femur hardware removal. 2. Right hip hemiarthroplasty. SURGEON: Dr. Alvaro Lozano. CARPENTER HELPER: Nisreen Luciano MD ANESTHESIA: General. ESTIMATED BLOOD LOSS: 200 mL. DRAINS: No drains. TOURNIQUETS: No tourniquets. COMPLICATIONS: No complications. DESCRIPTION OF PROCEDURE: The patient brought to the operating room where she was placed under general anesthesia. Once under adequate general anesthesia, she was placed onto the operative table in a lateral decubitus position. The patient's right hip was then prepped and draped in a sterile manner. The extremity was then approached through a 14 cm total lateral hip incision. This was extended down to the tensor fascia, which was then incised exposing the posterior aspect of the hip. The posterior approach was then utilized elevating the piriformis along with the short external rotators to allow access to the hip. The proximal portion of the femoral nail was then identified with a K-wire and subsequently the locking for the blade that was in the nail was then released and the blade was then removed with an extractor from the [employer] set. [facility] [address] [place] [address] OPERATIVE REPORT Name: DIANASTARR LOGANEN Room #: 444-P [facility] IN M.R.#: [id number] Admission: 07/10/20 Attend Phys: Ga Raymundo MD Discharge: 07/17/20 Date of : 47 Report #: [id number] Distally, two transverse locking screws were then removed utilizing a 4 cm incision overlying and then exposing them and removing them with the large fragment screwdriver. Once this was complete, the nail was then easily extracted through the greater trochanter. The wounds were then irrigated copiously. The hip was then dislocated and the femoral head extracted with a rongeur. The femoral neck was cut to length with an oscillating saw and a reamer was then used to open the canal. This was taken up to a size 9 reamer. The femur was then broached to a size 8 stem. The femur was then prepared for cementation after trialing a size 46 head. The femur was then prepared for cementation and subsequently the cement and the size 8 femoral stem were placed. The +0 neck and 46 mm femoral head were then placed. The hip was then reduced. Satisfactory reduction was achieved. The capsular layer was closed with #2 FiberWire. #5 FiberWire was used to repair the piriformis back to its position in the piriformis fossa. The wound was irrigated once again copiously and closed with #1 Vicryl in the deep fascia, 2-0 Vicryl in subcutaneous tissues and lilian were used for the skin. Wound was dressed with Xeroform, 4 x 4s, and sterile soft compressive dressing was placed. There were no complications from the procedure. The patient tolerated the procedure well and was taken to recovery room without incident. <ELECTRONICALLY SIGNED> By: Alvaro Lozano MD 07/24/20 1536 [id number] Alvaro Lozano MD /nt
== END 2020-07-17 11:35 | DRG 521 ==
LOC: ER 16:44 → 4S 20:45 → EROBS 20:45 → 4S 21:48
PROVIDERS: Emergency Medicine; Hospitalist; Nurse Practitioner Family; ADMIT Internal Medicine; ATTEND Internal Medicine
DX: S72.001A Fracture of unspecified part of neck of right femur, initial encounter for closed fracture (principal); E43 Unspecified severe protein-calorie malnutrition; N39.0 Urinary tract infection, site not specified; M48.56XA Collapsed vertebra, not elsewhere classified, lumbar region, initial encounter for fracture; E87.1 Hypo-osmolality and hyponatremia; I10 Essential (primary) hypertension; E66.9 Obesity, unspecified; E78.5 Hyperlipidemia, unspecified; F41.9 Anxiety disorder, unspecified; F32.9 Major depressive disorder, single episode, unspecified; E03.9 Hypothyroidism, unspecified; E11.42 Type 2 diabetes mellitus with diabetic polyneuropathy; D64.9 Anemia, unspecified; M81.0 Age-related osteoporosis without current pathological fracture; K21.9 Gastro-esophageal reflux disease without esophagitis; Z20.822 Contact with and (suspected) exposure to COVID-19; Z79.899 Other long term (current) drug therapy; Z88.6 Allergy status to analgesic agent; Z68.32 Body mass index [BMI] 32.0-32.9, adult; Z90.49 Acquired absence of other specified parts of digestive tract; Z87.891 Personal history of nicotine dependence; Z79.82 Long term (current) use of aspirin; W18.39XA Other fall on same level, initial encounter; Y93.89 Activity, other specified; Y92.89 Other specified places as the place of occurrence of the external cause; Y99.8 Other external cause status
CPT/HCPCS: 10195; 50101; 50382; 50414; 50939; 51057; 51130; 51225; 51226; 51412; 53000; 56525; 56530; 56531; 57103; 57117; 62110; 62900; 70005

== ENCOUNTER 2020-07-21 08:56 | Inpatient (IN) | payer OTHER ==
[~2020-07-21] VITALS: Ht 167.6 cm; Wt 84.6 kg
--- NOTE | ~2020-07-21 | EMS ---
[address] [address] EMS Patient Care Report Name: STARR SMITH Room #: REG CHAVO Harrell#: [id number] Admission: 07/21/20 Attend Phys: Discharge: Date of : 46 Report #: [id number] THIS REPORT FOR: //name// Report Transmitted: 07/21/2020 09:19 EMS Care Summary [place], [place]/[facility] Incident [id number] @ 07/21/2020 08:29 Incident Location [address] [place] [address] E11 Patient STARR SMITH Female, 75 Years 1945 Patient Address [address] [place] [address] Patient History Hypertension (HTN),Gastro-Esophageal Reflux Disease (GERD),Morbid Obesity,Depression,Osteoarthritis,Anxiety,Hip Fracture,Hypothyroidism,Type 2 Diabetes, Patient Allergies Morphine, Patient Medications Pravastatin, Glipizide, Lisinopril, Citalopram, Webster, Levothyroxine, Insulin, Enoxaparin, Chief Complaint AMS Disposition Transported No Lights/[place] Dispatch Reason Unconscious/Fainting Transported To [facility] Narrative M528, P36 responded immediately to the scene of an Unconscious. Arrived on [address] [address] EMS Patient Care Report Name: STARR SMITH Room #: REG Yasmeen.#: [id number] Admission: 07/21/20 Attend Phys: Discharge: Date of : 47 Report #: [id number] scene and staff directed us to pt's room. Upon arrival, pt found with eyes open but non-verbal. Staff nurse reports she has never had this pt before and can provide minimal information about pt. She does report pt is normally A&OX4 and can carry on full conversation. She cannot articulate when the change in mentation occurred other than nursing notes report pt being verbal last night. Pt was transferred to facility for rehab after hip surgery secondary to a fall. Cot next to bed and pt moved across via sheet pull. Secured on via straps, rails up, then pt moved out to ambulance. Primary ALS assessment performed. Vitals established. D-stick acquired. EKG applied. 20g saline lock failed in R wrist. Transport to [facility] then initiated. Contacted with a short ETA, and report given. Pt has no appreciable changes during transport. Arrived at and patient to ER 06. Report to RN then care relased. Initial Vitals @08:51P: 119,R: 32,CO: 2,SpO2: 92, @08:45P: 121,R: 15,BP: 164/72,Pain: 0/10,GCS: 10,Glucose: 137,SpO2: 94,Revised Trauma: 11, Assessments @08:44MENTAL:Confused,Other,SKIN:Hot,HEENT:LUNG SOUNDS:ABDOMEN:PELVIS//GI:Pelvis GUOther,EXTREMITIES:PULSE:NEURO:Other, Impression Altered Mental Status Procedures @08:44ALS AssessmentResponse: UnchangedSucceeded@08:48Saline Lock 0cc (20 ga) Site: Forearm-RightResponse: UnchangedFailed@08:463-Lead ECGResponse: UnchangedSucceeded Timeline 08:27,Call Received 08:27,Dispatch Notified 08:29,Dispatched 08:31,En Route 08:35,On Scene 08:36,At Patient 08:44,ALS Assessment,Response: UnchangedSucceeded, 08:45,BP: 164/72 M,PULSE: 121,RR: 15 R,SPO2: 94 Ox,ETCO2: ,B,PAIN: 0,GCS: 10, 08:46,3-Lead ECG,Response: UnchangedSucceeded, [address] [address] EMS Patient Care Report Name: STARR SMITH Room #: REG [facility].#: [id number] Admission: 07/21/20 Attend Phys: Discharge: Date of : 47 Report #: [id number] 08:48,Saline Lock 0cc 20 ga Site: Forearm-Right,Response: UnchangedFailed, 08:50,Depart Scene 08:51,BP: / M,PULSE: 119,RR: 32 R,SPO2: 92 Ox,ETCO2: ,BG: ,PAIN: ,GCS: , 08:53,At Destination 09:10,Call Closed Disclaimer v1.1 Copyright 2020 [employer] This EMS Care Summary contains data elements from the applicable legal record (which may be displayed differently). It is designed to provide pertinent information for the following purposes: continuity of care, clinical quality, and state data reporting. The complete legal record is available to ED staff and administrators of the receiving hospital in [facility] Patient Tracker. All data is provided "as is."
[~2020-07-21 08:56] MED LIST changes: +ENOXAPARIN40 MG/0.1 SUBQ; +FREESTYLE LIBR1 EAC2 MISCELL; +NORCO 7.5-3251 EACH PO
[2020-07-21 08:57] VITALS: BP 166/52
[2020-07-21 09:39] LABS: ABSOLUTE NEUTROPHILS 8.2 thou/uL (1.4-8.2); BASOPHILS 0.6 % (0.0-2.0); HEMATOCRIT 22.1 % (37.0-47.0); HEMOGLOBIN 7.4 gm/dL (12.0-15.0); LYMPHOCYTES 2.7 % (24.0-44.0); MCH 31.6 pg (26.0-34.0); MCHC 33.5 g/dL (28.0-37.0); MCV 94.5 fL (80.0-100.0); MONOCYTES 5.4 % (1.0-8.0); PLATELET COUNT 228 thou/uL (150-400); POLYS 91.3 % (36.0-66.0); RBC 2.34 mil/uL (4.20-5.00); RDW 15.5 % (10.5-14.5)
[2020-07-21 09:48] LABS: CALCIUM 7.7 mg/dL (8.5-10.1); CREATININE 0.7 mg/dL (0.6-1.0); POTASSIUM 3.9 mmol/L (3.5-5.1)
[2020-07-21 09:50] LABS: URINE BILIRUBIN NEGATIVE (Negative); URINE BLOOD 2+ (Negative); URINE CLARITY HAZY; URINE COLOR YELLOW; URINE GLUCOSE-RANDOM* NEGATIVE (Negative); URINE KETONES 1+ (Negative); URINE LEUKOCYTES-REFLEX 1+ (Negative); URINE NITRITE-REFLEX POSITIVE (Negative); URINE PROTEIN (DIPSTICK) 2+ (Negative); URINE SPECIFIC GRAVITY 1.015 (1.005-1.035)
[2020-07-21 09:51] LABS: APTT 28.5 Seconds (24.5-32.8); INR 1.1
[2020-07-21 09:54] LABS: ALBUMIN 1.9 g/dL (3.4-5.0); TOTAL BILIRUBIN 0.8 mg/dL (0.2-1.0); TOTAL PROTEIN 4.8 g/dL (6.4-8.2)
[2020-07-21 10:03] LABS: CASTS None Seen /LPF (None Seen); CRYSTALS None Seen /LPF (None Seen); SQUAMOUS 0-3 Few /LPF (0-3); URINE RBC 0-2 Rare /HPF (0-2)
[2020-07-21 10:04] LABS: BACTERIA-REFLEX >30 Many /HPF (None Seen)
--- NOTE | 2020-07-21 10:06 | NUR ---
SPOKE WITH DAUGHTER HEATHER AND GAVE UPDATE ON PT.
[2020-07-21] MEDS ORDERED: IMODIUM A-D2 M1 PO (10:11)
[2020-07-21 10:55] LABS: BE(vivo) 1.1 mmol/L (-2 to +3); HCO3 23.5 mmol/L (22.0-26.0); PCO2 29.1 mmHg (35.0-45.0); PO2 90.5 mmHg (80.0-100.0); pH 7.525 (7.360-7.450); sO2 97.7 % (92.0-98.0)
--- NOTE | 2020-07-21 12:12 | EKG ---
[address] [address] ELECTROCARDIOGRAM REPORT Name: STARR SMITH Room #: 170-6 ADM IN M.R.#: [id number] Admission: 07/21/20 Attend Phys: Rei Apple MD Discharge: Date of : 46 Report #: [id number] [facility] ED Test Date: 2020-07-21 Test Time: 10:53:12 Pat Name: STARR SMITH Department: Room: 170 Gender: F Entry Level Lab Technician: YOKASTA : 1945 Requested By: Sina Alvarado Order Number: [id number] MD: Dayton Walker Measurements Intervals [place] Rate: 105 P: 47 MO: 179 QRS: 9 QRSD: 84 T: 27 QT: 367 QTc: 486 Interpretive Statements Sinus tachycardia Minimal ST depression, inferior leads Compared to ECG 07/10/2020 21:13:30 ST (T wave) deviation now present Sinus rhythm no longer present Poor R-wave progression no longer present Electronically Signed On 07-21-2020 12:11:41 PROJECT GEOLOGIST by Dayton Walker [email or web address] <ELECTRONICALLY SIGNED> By: Dayton Walker MD 07/21/20 1211 1053 1053 Dayton Walker MD /EPI
--- NOTE | 2020-07-21 14:28 | EKG ---
[address] [address] ELECTROCARDIOGRAM REPORT Name: DIANASTARR LOGAN Room #: 170-6 ADM IN M.R.#: [id number] Admission: 07/21/20 Attend Phys: Rei Apple MD Discharge: Date of : 46 Report #: [id number] [facility] ED Test Date: 2020-07-21 Test Time: 09:46:48 Pat Name: STARR SMITH Department: Room: 170 Gender: F Customs Compliance Specialist: YOKASTA : 1945 Requested By: Sina Alvarado Order Number: [id number] MD: Manuel Strong Measurements Intervals [place] Rate: 169 P: TN: QRS: 6 QRSD: 141 T: 102 QT: 325 QTc: 545 Interpretive Statements SINUS TACHYCARDIA Artifact in lead(s) I,aVR,aVL,V1,V2,V3,V4,V5,V6 Compared to ECG 07/10/2020 21:13:30 Sinus rhythm no longer present Poor R-wave progression no longer present Electronically Signed On 07-21-2020 14:28:18 AUXILIARY POWER EQUIPMENT OPERATOR by Manuel Strong [email or web address] <ELECTRONICALLY SIGNED> By: Manuel Strong MD, FAC 07/21/20 1428 Manuel Strong MD, [facility] /EPI
[2020-07-21 14:35] VITALS: BP 158/39
--- NOTE | 2020-07-21 14:55 | NUR ---
Patient admitted to the ED on 07-21-20 at 0905 as a 75-year-old female with past medical history of diabetes, hypertension, recent hip fracture admitted to correction on 07/15 presenting today for evaluation of altered mental status. Patient reportedly is alert and oriented x4 at baseline, and nurse this morning found that the patient was aphasic. CT head performed did not demonstrate definitive evidence of acute intracranial hemorrhage. COVID Antigen positive on 07-21-20. Patient was sent to [facility] from long term facility for change in mentation. Per records patient was admitted to [facility] on 07/10/2020 status post fall. Images revealed right femoral neck fracture, right femur retained hardware. Patient underwent right femur hardware removal, right hip hemiarthroplasty on 07/12/2020. During her hospital stay patient was also treated for bladder infection. The patient was admitted by a hospitalist for: Sepsis/urosepsis, acute encephalopathy, acute hypoxemic respiratory failure, anemia and recurrent hyponatremia along with hx of right hip fx s/p ORIF on , DM, HTN, HLD, Severe protein calorie malnutrition, anxiety/depression, L1 compression fracture, DJD and GI/DVT Prophylaxis. Pt was discharged on 07-17-20 to [facility] after the daughter had requested [address] [place] [address] evaluation and attempt for authorization which [address] [place] [address] was unable to gain authorization for acute rehab services. Daughter is Stephanie Smith as next of kin and notification alliance party at [phone]. Spoke with Stephanie and she understood the process of CM as treatment plan moves forward. CM will follow for discharge needs. Spoke with Ninfa the nurse who has conveyed that as the patient is symptomatic and her COVID Antigen is positive they will not be pursuing the PCR and patient will be transferring to [facility]. CM will follow for discharge needs.
[2020-07-21 15:37] VITALS: BP 134/74
[2020-07-21 17:52] VITALS: BP 139/53
[2020-07-21 19:34] VITALS: BP 154/64
--- NOTE | 2020-07-21 19:48 | NUR ---
ADMITTED PATIEN TO ROOM AT THIS TIME. RESPIRATIONS ARE EVEN NON LABORED. DOES NOT SEEM TO BE IN PAIN. DECREASE LEVEL OF CONSC. CONT ON IV FLUIDS. UPDATED FAMILY ON RESIDEN'S STATE.
--- NOTE | 2020-07-21 20:17 | HC ---
[facility] [place] [address] CONSULTATION Name: STARR SMITH Room #: 353-P ADM IN M.R.#: [id number] Admission: 07/21/20 Attend Phys: Rei Apple MD Discharge: Date of : 46 Report #: [id number] THIS REPORT FOR: cc: Suzanna Templeton Shanna R. DO Geha, Daniel J. MD ~ DATE OF SERVICE: 07/21/2020 REASON FOR CONSULTATION: I was asked to evaluate concerning COVID-19 and altered mental status. HISTORY OF PRESENT ILLNESS: The patient is a 75-year-old with underlying history of diabetes, anxiety, depression, peripheral neuropathy. She fractured her right proximal femur in February of 2020. She then fell again on 07/10/2020 with refracture. She underwent hardware removal and a right hip hemiarthroplasty was placed on a 07/12/2020. During her hospital stay, she had urinary tract infection, which was treated with ceftriaxone. She often was found to have hyponatremia. She had a postoperative anemia and required blood transfusion screening for COVID on 07/10/2020 was negative as well as 07/16/2020. She returns now from [facility] with decreased mental status and progressive hyponatremia. On screening, her COVID antigen was positive today. She was febrile on admission with temperature 102.2 degrees. She was tachycardic with stable blood pressure. She was hypoxic and is now on oxygen per nasal cannula. She is on 4 liters at this time. She was lethargic and unable to give any history. She would moan, otherwise nonconversant. A 14-point review of system was negative other than what has been described above. Most notable she has had no nausea, vomiting or diarrhea. She has had reasonable urine output. She has had no other skin rashes or decubiti. She has had no other falls at the facility. ALLERGIES: MORPHINE. MEDICATIONS: As noted on her SEP, which were reviewed including fish oil, niacin, omeprazole, Unicomplex multivitamin, Pravachol, Celexa, clobetasol cream, Synthroid, Imodium. PAST MEDICAL HISTORY: Right hip fracture with [place] 03/03/2020, left hand abscess I and D on 03/02/2020, hypertension, diabetes, cholecystectomy, tonsillectomy. FAMILY HISTORY: Not available. SOCIAL HISTORY: Past smoker, no significant alcohol intake. [facility] [address] [place] [address] CONSULTATION Name: STARR SMITH Room #: 353-P [facility] IN M.R.#: [id number] Admission: 07/21/20 Attend Phys: Rei Apple MD Discharge: Date of : 46 Report #: [id number] PHYSICAL EXAMINATION: GENERAL: She would open her eyes, but would not follow commands or respond. SKIN: She had bruising to her face and right upper arm. No other rash or decubitus noted. No palpable adenopathy. She was obese. Right hip and thigh incision was well approximated. Small area of ecchymosis still present. No drainage to the dressings. 1+ edema in her thigh. No palpable adenopathy. NECK: Supple. EYES: Without conjunctivitis or scleral icterus. MOUTH: Without mucositis. CHEST: Lungs, few basilar crackles. No consolidation. HEART: Regular, without murmur, gallop or rub. ABDOMEN: Soft. No hepatosplenomegaly or mass appreciated. GENITOURINARY: External genitalia. RECTAL: Not performed. EXTREMITIES: Without clubbing or cyanosis. NEUROLOGIC: The patient was not cooperative with her examination. She did grimace when I moved her right leg. PSYCHIATRIC: Mood was sedate. LABORATORY STUDIES: Reviewed. MICROBIOLOGY: Reviewed. Chest x-ray reviewed. CT scan of the head, MRI scan of the head reviewed. IMPRESSION: 1. COVID-19 positive with bilateral interstitial infiltrates and hypoxia consistent with COVID-19 pneumonia. 2. Altered mental status with hyponatremia, unclear if this is related to COVID-19, psychiatric issue, metabolic encephalopathy or combination of the above. 3. Anemia. 4. Post right hip fracture. 5. Cystitis. 6. Diabetes. 7. Malnutrition. 8. History of anxiety, depression. RECOMMENDATIONS: We will continue combination antibiotics and antiviral therapy. The patient will require corticosteroids. Adjust her fluids to improve her hyponatremia. Follow serial laboratory studies, x-rays and maintain [address] [address] CONSULTATION Name: STARR SMITH Room #: 353-P ADM IN M.R.#: [id number] Admission: 07/21/20 Attend Phys: Rei Apple MD Discharge: Date of : 46 Report #: [id number] the patient on COVID isolation unit. Continue rehabilitation efforts for her right hip, <ELECTRONICALLY SIGNED> By: Liban Walker MD 07/21/202016 1944 04 Liban Walker MD /nt
[2020-07-22 00:46] VITALS: BP 147/60
[2020-07-22 05:01] VITALS: BP 149/68
[2020-07-22 05:28] LABS: ABSOLUTE NEUTROPHILS 5.4 thou/uL (1.4-8.2); BASOPHILS 0.1 % (0.0-2.0); HEMATOCRIT 22.6 % (37.0-47.0); HEMOGLOBIN 7.6 gm/dL (12.0-15.0); LYMPHOCYTES 4.6 % (24.0-44.0); MCH 31.8 pg (26.0-34.0); MCHC 33.6 g/dL (28.0-37.0); MCV 94.4 fL (80.0-100.0); MONOCYTES 10.9 % (1.0-8.0); PLATELET COUNT 261 thou/uL (150-400); POLYS 84.4 % (36.0-66.0); RBC 2.39 mil/uL (4.20-5.00); WBC 6.4 thou/uL (4.0-11.0)
[2020-07-22 05:33] LABS: INR 1.1; PROTIME 11.1 Seconds (9.3-11.4)
[2020-07-22 05:38] LABS: FIBRINOGEN 448.3 mg/dL (210-360)
[2020-07-22 05:41] LABS: CALCIUM 8.6 mg/dL (8.5-10.1); CREATININE 0.8 mg/dL (0.6-1.0); MAGNESIUM 1.3 mg/dL (1.8-2.4); POTASSIUM 3.2 mmol/L (3.5-5.1); TOTAL BILIRUBIN 0.6 mg/dL (0.2-1.0); TOTAL PROTEIN 5.8 g/dL (6.4-8.2)
[2020-07-22 06:08] LABS: TROPONIN-I 1.18 ng/mL (<0.06)
--- NOTE | 2020-07-22 06:36 | NUR ---
ADMISSSION COMPLETED, INTERVENTIONS SET IN PLACE, CARE PLAN DONE. PT IS ON BEDREST DUE TO HIP FX. WOUND SITES C/D/I. CRITICAL LAB FOR TROP 1.14 CALLED TO TAP OUT OPERATOR, RECEIVED ORDERS TO CONSULT CARDIO. EXTERNAL CATH IN PLACE. FALL AND ISOLATION PRECAUTIONS IN PLACE.
[2020-07-22 07:49] VITALS: BP 161/64
[2020-07-22 08:28] LABS: % SATURATION 8 % (20-39); IRON 14 ug/dL (50-170)
[2020-07-22 09:30] LABS: TIBC 180 ug/dL (250-450)
--- NOTE | 2020-07-22 10:30 | NUR ---
WOUND CARE CONSULT; AWAKE BUT DISORIENTED X3, HAD R HIP FX W/ SURGERY 1/2 TO REPAIR, VALENTE INTACT, NO DRAINAGE, ECCHYMOSIS PRESENT, PER LEAD RETAIL SALES ASSOCIATE MICHELLE CONTACTING SURGEON TO SEE WHEN VALENTE CAN BE REMOVED, HEELS INTACT, INCONT STOOL, BUTTOCKS AREA SLIGHTLY RONALD, PURE WICK CATH IN PLACE RECOMMENDATIONS; 1-LOW AIR LOSS PUMP TO BED 2-BORDER GAUZE DRSG TO R HIP CHANGE M/W/F AND PRN 3-PURE WICK CATH 4-PRAFO BOOTS LEAD RETAIL SALES ASSOCIATE AWARE 4-ZGUARD BUTTOCK AREA DAILY PRN LEAD RETAIL SALES ASSOCIATE AWARE
[2020-07-22 13:30] VITALS: BP 140/80
--- NOTE | 2020-07-22 14:24 | NUR ---
INITIAL ASSESSMENT: Received consult. KYRIE reviewed chart and spoke with nursing and attending physician. Pt was admitted from [facility] due to sepsis. Pt placed in Enhanced Isolation due to having positive COVID test in the ER on 07/21. Pt is febrile and on 2L of O2. Pt is on IV abx and IV steroids. Pt is completing courses of Remdesivir and Ivermectin. SW received call from Edvin at [facility], who states they are not able to accept pt back due to now being COVID positive. [facility] does not have their COVID unit open at this time. Pt had COVID test on 07/16 prior to discharge from [facility] to [facility]. KYRIE spoke with pt's dtr, Stephanie, via phone. Introduced role of SW. Pt's dtr states that she is aware that pt is not able to return to [facility]. SW discussed alternate SNF options. Pt's family to discuss. Discharge timeframe unknown at this time. Will need therapy evals and insurance prior auth for admission to SNF. KYRIE is following to assist as needed with discharge planning.
--- NOTE | 2020-07-22 14:25 | NUR ---
Nutrition: pt admitted with AMS, COVID PNA. Received wound consult. Recent right hip fractures/surgery with lilian present per wound care, also left buttock redness. Pt currently NPO due to AMS. More alert now but still confused. On vitamin Pack/steroids and IVFS. Current weight showing a possible 7% decline in 5 months however prior weight was pt reported-unsure of accuracy Physician has charted malnutrition on basis of albumin-RD deferring dx. Pt was eating well on recent admit, 50-100% of meals. Diet order is advance as tolerated, will follow for timely diet advancement and adequate intake/need for supplement. Otherwise low nutrition risk.
[2020-07-22 15:09] VITALS: BP 152/83
[2020-07-22] MEDS ORDERED: LANTUS SUBQ (15:57)
[2020-07-22 20:44] VITALS: BP 176/81
[2020-07-23 05:57] VITALS: BP 177/80
[2020-07-23 07:21] LABS: HEMATOCRIT 21.5 % (37.0-47.0); HEMOGLOBIN 7.2 gm/dL (12.0-15.0); MCH 32.1 pg (26.0-34.0); MCHC 33.5 g/dL (28.0-37.0); MCV 95.8 fL (80.0-100.0); RBC 2.25 mil/uL (4.20-5.00); RDW 15.8 % (10.5-14.5); WBC 6.5 thou/uL (4.0-11.0)
[2020-07-23 07:35] VITALS: BP 163/64
[2020-07-23 07:37] LABS: CALCIUM 8.7 mg/dL (8.5-10.1); CREATININE 0.8 mg/dL (0.6-1.0); DIRECT BILIRUBIN 0.2 mg/dL (<0.1-0.2); MAGNESIUM 1.8 mg/dL (1.8-2.4); PHOSPHORUS 2.6 mg/dL (2.5-4.9); POTASSIUM 3.8 mmol/L (3.5-5.1); TOTAL BILIRUBIN 0.5 mg/dL (0.2-1.0); TOTAL PROTEIN 5.7 g/dL (6.4-8.2)
[2020-07-23 11:24] VITALS: BP 172/78
[2020-07-23 11:45] LABS: TROPONIN-I 0.75 ng/mL (<0.06)
[2020-07-23 15:08] VITALS: BP 182/85
--- NOTE | 2020-07-23 15:47 | NUR ---
KYRIE reviewed chart and spoke with nursing and attending physician. Pt remains in Enhanced Isolation due to COVID-19. Pt is afebrile and on 2L of O2. Pt is on IV abx and IV steroids. Pt is completing courses of Remdesivir and Ivermectin. Pt has not been able to complete PT/OT evals. ST has worked with pt. Pt is on a pureed diet with honey thickened liquids. KYRIE spoke with pt's dtr, Stephanie, via phone to provide update and discuss alternate SNF placement when ready for discharge. Stephanie requests referral to be sent to [facility] for review. KYRIE faxed referral and notified Kristie in admissions. KYRIE is following to assist as needed with discharge planning.
--- NOTE | 2020-07-23 18:39 | NUR ---
PATIENT MOST AWAKE TODAY. CONVERSANT AND ABLE TO EAT HER FOOD WITH MINIMAL ASSIST. SPOKE WITH DAUGHTER VIA FACETIME. SHE HOWEVER REMAINS QUITE WEAK AT THIS TIME. BOTH UPPER AND LOWER EXTREMITIES WEAKNESS NOTED. WILL CONT WITH PLAN OF CARE.
[2020-07-23 19:25] VITALS: BP 172/80
--- NOTE | 2020-07-24 03:19 | NUR ---
WERO FROM LAB CALLED WITH POSITIVE BC. GRAM+ COCCI. CALLED INTERPRETER AND TRANSLATOR AND GAVE RESULTS. NO ORDERS RECEIVED.
[2020-07-24 04:11] VITALS: BP 174/84
[2020-07-24 06:13] LABS: HEMATOCRIT 22.4 % (37.0-47.0); HEMOGLOBIN 7.5 gm/dL (12.0-15.0); MCH 31.6 pg (26.0-34.0); MCHC 33.4 g/dL (28.0-37.0); MCV 94.4 fL (80.0-100.0); RBC 2.37 mil/uL (4.20-5.00); RDW 15.6 % (10.5-14.5); WBC 6.7 thou/uL (4.0-11.0)
[2020-07-24 06:30] LABS: ALBUMIN 2.1 g/dL (3.4-5.0); CALCIUM 8.9 mg/dL (8.5-10.1); CREATININE 0.8 mg/dL (0.6-1.0); DIRECT BILIRUBIN 0.2 mg/dL (<0.1-0.2); MAGNESIUM 1.5 mg/dL (1.8-2.4); PHOSPHORUS 2.3 mg/dL (2.6-4.7); POTASSIUM 3.4 mmol/L (3.5-5.1); TOTAL BILIRUBIN 0.6 mg/dL (0.2-1.0); TOTAL PROTEIN 5.9 g/dL (6.4-8.2)
[2020-07-24 07:36] VITALS: BP 165/82
[2020-07-24 11:45] VITALS: BP 177/72
--- NOTE | 2020-07-24 13:12 | NUR ---
WOUND CARE F/U; THE BUITTOCKS IS MUCH IMPROVED TODAY. THE RIGHT HIP SURGICAL INSCISION HAS COPIOUS GREENISH/YELLOW DRAINAGE. I CLEANSE THE INSCION WITH SALINE AND COVERED WITH A BORDERED FOAM. NO NOTICABLE ODOR. RECOMMENDATIONS; CONTINUE CURRENBT TREATMENT. NOTIIFED RN OF THE DRAINAGE.
--- NOTE | 2020-07-24 15:09 | NUR ---
KYRIE reviewed chart and spoke with nursing and attending physician. Pt remains in Enhanced Isolation. Pt is on IV abx and IV steroids. Pt is progressing towards goals for discharge to post-acute care. Pt is completing Remdesivir and Ivermectin. KYRIE spoke with Kristie at [facility] who states they are able to accept pt from a clinical standpoint. [facility] to submit for insurance authorization tomorrow, as they will have a bed available over the weekend if pt is ready for discharge. KYRIE faxed clinical/therapy updates to [facility] for review. Awaiting PT eval. KYRIE spoke with pt's dtr, Stephanie, via phone to discuss [facility]'s acceptance. Stephanie is agreeable with discharge plan. KYRIE is following to assist as needed with discharge planning.
[2020-07-24 15:35] VITALS: BP 158/76
--- NOTE | 2020-07-24 18:15 | NUR ---
ASSUMED CARE OF PT AT 0700 .PT AOX3 FORGETFUL. COGNITION IMPROVING. APPETITE IMPROVING. PPN STILL INFUSING PER PHYSICIAN. PATIENT EATING MORE AND MORE WITH EACH MEAL. GREEN DRAINAGE SATURATED ON PAD THIS MORNING. CHANGED BY WOUND CARE NURSE - SURGICAL DRESSING C/D/I. PAIN WITH THERAPY - TREATED WIHT ANALGESICS.
[2020-07-24 19:40] VITALS: BP 169/67
--- NOTE | 2020-07-24 22:08 | NUR ---
PT CONFUSED. FOLLOWS COMMANDS. FORGETFUL. VSS AFEBRILE. 95% ON RA. NO C/LO PAIN . NO S/S DISTRESS. ED DOWN . CALL LIGHT IN REACH. BED ALARM IS ON. SL RESTARTED L FA. PPN INFUSING WITHOUT DIFFICULTY. WILL CONTINUE TO MONITOR PT FOR CHANGES.
--- NOTE | 2020-07-24 22:48 | NUR ---
NOTIFIED LEATHER SEASONER MERCHANDISE BUYER REGARDING BS 445. S/S SCALE GIVEN ORDERED. DR NAVIN GRANT.
[2020-07-25 03:54] VITALS: BP 167/92
[2020-07-25 06:00] LABS: HEMATOCRIT 22.7 % (37.0-47.0); HEMOGLOBIN 7.5 gm/dL (12.0-15.0); MCH 31.6 pg (26.0-34.0); MCHC 33.1 g/dL (28.0-37.0); MCV 95.5 fL (80.0-100.0); RBC 2.37 mil/uL (4.20-5.00); RDW 15.6 % (10.5-14.5); WBC 7.2 thou/uL (4.0-11.0)
[2020-07-25 06:16] LABS: CALCIUM 8.9 mg/dL (8.5-10.1); CREATININE 0.7 mg/dL (0.6-1.0); DIRECT BILIRUBIN 0.2 mg/dL (<0.1-0.2); MAGNESIUM 1.6 mg/dL (1.8-2.4); PHOSPHORUS 2.3 mg/dL (2.6-4.7); TOTAL BILIRUBIN 0.6 mg/dL (0.2-1.0); TOTAL PROTEIN 5.7 g/dL (6.4-8.2)
[2020-07-25 08:08] VITALS: BP 184/74
[2020-07-25 09:58] VITALS: BP 159/51
[2020-07-25 11:38] VITALS: BP 160/59
--- NOTE | 2020-07-25 14:51 | NUR ---
NOTE PER REPAIR SERVICE DISPATCHER: KYRIE spoke with nursing and attending physician. Pt remains in Enhanced Isolation. Pt is progressing towards goals for discharge. Pt is completing course of Remdesivir. Anticipate pt will be ready for discharge to [facility] tomorrow pending insurance authorization. management planner to fax clinical/therapy updates to [facility] for review. Staff to contact Kristie at [facility] when pt has discharge orders. Kristie to coordinate discharge. KYRIE spoke with pt's dtr, Stephanie, via phone to provide update and discuss discharge plan. Stephanie is aware and agreeable with plan. Parsih may bring some clothes to the hospital for transport. Stephanie to be notified when discharge arrangements are in place. Finalized discharge orders/summary to be faxed when available. Pt's chart will need to be copied. Nursing will need to call report. JUNNEL-NE-Knubk: [phone] Kristie: [phone] CHARMAINE Chavez
--- NOTE | 2020-07-25 15:24 | NUR ---
CARE ASSUMED AT 0700, PT ALERT AND ORIENTED X4, FORGETFUL AT TIMES. PT DENIES ANY PAIN, NAUSEA AND VOMITTING. POST SURGERY HIP DRESSING IN PLACE. PT CONTINUE TO HAVE LOW APPETITE, BARELY ATE HER BREAKFAST AND LUNCH. FALL PRECAUTIONS IN PLACE, WILL CONTINUE TO MONITOR.
--- NOTE | 2020-07-25 16:13 | NUR ---
FAXED CLINICAL UPDATE TO [facility] SPOKE WITH ELIZABETH IN ADM SHE RECEIVED UPDATE.
[2020-07-25 16:20] VITALS: BP 149/50
[2020-07-25 19:43] VITALS: BP 151/68
[2020-07-26 03:36] VITALS: BP 162/58
[2020-07-26 05:59] LABS: HEMATOCRIT 23.8 % (37.0-47.0); HEMOGLOBIN 7.9 gm/dL (12.0-15.0); MCH 31.4 pg (26.0-34.0); MCHC 33.3 g/dL (28.0-37.0); MCV 94.2 fL (80.0-100.0); RBC 2.53 mil/uL (4.20-5.00); RDW 15.6 % (10.5-14.5); WBC 7.8 thou/uL (4.0-11.0)
--- NOTE | 2020-07-26 06:09 | NUR ---
VSS OVERNIGHT, PT ON RA SATS IN MID 90'S. POC WITH PPN AND REMDESIVIR IVF. PT CAN HELP ROTATE HERSELF IN THE BED. RANGEL IN PLACE AND PT HAD BM OVERNIGHT. PT MENTATION IS IMPROVING AND IS ABLE TO HAVE A CONVERSATION NOW. HOURLY ROUNDING.
[2020-07-26 06:12] LABS: CALCIUM 8.8 mg/dL (8.5-10.1); CREATININE 0.7 mg/dL (0.6-1.0); MAGNESIUM 1.4 mg/dL (1.8-2.4); POTASSIUM 3.8 mmol/L (3.5-5.1)
[2020-07-26 08:08] VITALS: BP 155/64
[2020-07-26] MEDS ORDERED: NORVASC10 MG PO (10:45)
[2020-07-26] MEDS ORDERED: CIPROFLOXACIN250 M2 PO (10:45)
[2020-07-26] MEDS ORDERED: LISINOPRIL20 MG PO (10:45)
[2020-07-26] MEDS ORDERED: LANTUS SUBQ (10:46)
[2020-07-26] MEDS ORDERED: PREDNISONE 10 M10 M1 PO (10:47)
[2020-07-26 11:16] VITALS: BP 143/58
[2020-07-26 15:59] VITALS: BP 146/58
--- NOTE | 2020-07-26 18:35 | NUR ---
DID EAT GREATER THAN 50% OF MOST MEALS THROUGH THE DAY. SHE NEEDS TO BE FED OR SHE FORGETS SHE IS EATING. SHE IS ALERT ORIENTED X3. RESPIRATIONS ARE NON LABORED. ON ROOM AIR.
[2020-07-26 19:20] VITALS: BP 138/63
[2020-07-27 03:20] VITALS: BP 151/61
--- NOTE | 2020-07-27 05:24 | NUR ---
RESTING QUIETLY TONIGHT. TAKES PO WATER EASILY. DENIES PAIN. CONT, ON PPN.
[2020-07-27 07:50] VITALS: BP 147/57
[2020-07-27 11:30] VITALS: BP 161/67
[2020-07-27 15:56] VITALS: BP 115/56
--- NOTE | 2020-07-27 18:05 | NUR ---
PATIENT NOW SLEEPING. ATE HER FOOD ATLEAST 1/2 THROUGH THE DAY. SHE IS ALERT ORIENED X2. PLEASANT WITH CARE. VALENTE TAKEN OUT TODAY AND SHE TOLERATED WELL. SHE DOES NOT SEEM TO BE IN PAIN. STERI STRIPS APPLIED AND NEW DRESSING APPLIED. SHE WILL MOST LIKEL Y GO HOME TOMORROW. WILL CONT WITH PLAN OF CARE.
[2020-07-27 19:48] VITALS: BP 154/52
--- NOTE | 2020-07-27 21:06 | HC ---
[facility] [place] [address] CONSULTATION Name: STARR SMITH Room #: 353-P ADM IN M.R.#: [id number] Admission: 07/21/20 Attend Phys: Rei Apple MD Discharge: Date of : 47 Report #: [id number] THIS REPORT FOR: cc: Suzanna Templeton Shanna R. DO Khosla, Parveen K. MD ~ DATE OF SERVICE: 07/21/2020 HISTORY OF PRESENT ILLNESS: This is a 75-year-old female patient who is unable to provide any history at all. The patient is barely responsive, all the history is from the records. The record indicates that the patient has a history of hypertension, diabetes, hyperlipidemia, anxiety, depression, neuropathy, hypothyroidism, femur fracture. She was brought here for change in mentation and neurological consultation was requested to evaluate the patient for the possibility of stroke. Extensive workup was done in Emergency Room. I reviewed that workup. The patient's CT angiogram is unremarkable. The patient's MRI and MRA are unremarkable. I do not have any further history available in this patient. REVIEW OF SYSTEMS: A 14-point review of systems was attempted from the record. This patient has a history of hip fracture, hypertension, diabetes mellitus. That is all the history I can get in this patient. PAST MEDICAL HISTORY: Positive for hip fracture and multiple other problems. FAMILY HISTORY: Unavailable. SOCIAL HISTORY: Also unavailable. PHYSICAL EXAMINATION: The patient's examination is very limited. This patient does not respond. She does not follow simple commands. She will not open her eyes. That makes the examination very difficult. She is on enhanced precautions for COVID. She is a moderately built individual. Her blood pressure is 134/74, pulse is 103, and she has been febrile with a temperature of 102.2. I cannot tell about meningeal sign. She does not appear to be in marked respiratory difficulty. She just does not look very well kempt, the best I can tell. IMPRESSION: Very difficult to form in this patient because of the above circumstances. I do not believe this patient has any stroke and she should be worked up for infectious etiology for her symptoms, both systemic and if no systemic cause for her infection is found, then she should be worked up and managed for ASSISTANT TEACHING PROFESSOR infection. For that, Infectious Disease, Dr. Walker is already consulted and that evaluation and management will be done by him. I do not [facility] [address] [place] [address] CONSULTATION Name: STARR SMITH Room #: 353-P ADM IN .R.#: [id number] Admission: 07/21/20 Attend Phys: Rei Apple MD Discharge: Date of : 47 Report #: [id number] think any further workup for stroke is needed and we will talk to you and try to reach some family if we can, but neurologically, we have limited thing to add and we will follow up p.r.n. as the main management and evaluation is going to be a systemic problem and especially infectious etiology, which is going to be carried out by Infectious Disease. Thank you very much for this referral. <ELECTRONICALLY SIGNED> By: Sheng Pandey MD 07/27/20 2106 [id number] Sheng Pandey MD /nt
[2020-07-28 04:39] VITALS: BP 144/51
[2020-07-28 06:25] LABS: HEMATOCRIT 25.8 % (37.0-47.0); HEMOGLOBIN 8.6 gm/dL (12.0-15.0); MCH 31.4 pg (26.0-34.0); MCHC 33.3 g/dL (28.0-37.0); MCV 94.3 fL (80.0-100.0); RBC 2.74 mil/uL (4.20-5.00); RDW 16.1 % (10.5-14.5); WBC 9.9 thou/uL (4.0-11.0)
[2020-07-28 06:29] LABS: CALCIUM 9.1 mg/dL (8.5-10.1); CREATININE 0.8 mg/dL (0.6-1.0); POTASSIUM 3.8 mmol/L (3.5-5.1)
--- NOTE | 2020-07-28 06:43 | NUR ---
PT RESTLESS IN BED, MOVES ALL OVER. ALARM IS A MUST. PT KEEPS CONVERSATION, BUT MAKES NO SENSE, OR SHE WILL HOLD A CONVERSATION WITH HERSELF. PER DAUGHTER PT IS NORMALLY A/0X4. VSS, NO COMPLAINTS OF PAIN OR NAUSEA.
[2020-07-28 07:20] VITALS: BP 144/49
[2020-07-28 11:22] VITALS: BP 131/65
--- NOTE | 2020-07-28 13:08 | NUR ---
DISCHARGE NOTE: KYRIE reviewed chart and spoke with nursing and attending physician. Pt remains in Enhanced Isolation. Pt is medically stable for discharge to [facility] SNF today pending insurance authorization. KYRIE spoke with Falguni at [facility], who states they did receive insurance auth and they can admit pt today. KYRIE faxed discharge orders/summary to [facility]. Pt needing stretcher van transportation, which [facility] is not able to arrange. KYRIE arranged stretcher van transportation through [email or web address] for [phone] this afternoon. KYRIE notified Director of Case Mgmt of transportation arrangements. KYRIE had spoken with pt's dtr, Stephanie, earlier today to provide update. Stephanie aware of discharge pending insurance auth. KYRIE left voice message for Stephanie to update and notify of transportation time. KYRIE notified Falguni of transportation time and confirmed discharge orders were received. Chart copy completed. Nursing provided with number to call report. No additional SW needs identified at this time, but is available to assist should needs arise.
--- NOTE | 2020-07-28 13:15 | NUR ---
CARE ASSUMED AT 0700, ALERT AND ORIENTED X4, CONFUSE AND FORGETFU, AT TIMES. PT DENIES ANY PAIN. UP IN CHAIR. RANGEL CATHETER DISCONTINUED. UP IN THE CHAIR JEAN PIERRE WITH ALARM ON. FALL PRECAUTIONS IN PLACE. ANTICIPATION FOR D/C AROUND 1600. WILL CONTINUE TO MONITOR.
--- NOTE | 2020-07-28 14:40 | NUR ---
REPORT GIVEN TO CAMILLE KEITH FROM [facility]. WAITING FOR TRANSPORTION
== END 2020-07-28 15:40 | DRG 871 ==
LOC: ER 08:56 → EROBS 11:39 → 3W 11:39
PROVIDERS: Emergency Medicine; Hospitalist; Nurse Practitioner; Specialist; ADMIT Internal Medicine; ATTEND Internal Medicine
PROC: XW033E5 Introduction of Remdesivir Anti-infective into Peripheral Vein, Percutaneous Approach, New Technology Group 5 (ICD-10-PCS; principal; 2020-07-21)
PROC: XW13325 Transfusion of Convalescent Plasma (Nonautologous) into Peripheral Vein, Percutaneous Approach, New Technology Group 5 (ICD-10-PCS; 2020-07-22)
DX: A41.89 Other specified sepsis (principal); J96.01 Acute respiratory failure with hypoxia; U07.1 COVID-19; E43 Unspecified severe protein-calorie malnutrition; I21.4 Non-ST elevation (NSTEMI) myocardial infarction; G92 Toxic encephalopathy; J12.82 Pneumonia due to coronavirus disease 2019; E87.1 Hypo-osmolality and hyponatremia; D64.9 Anemia, unspecified; E78.5 Hyperlipidemia, unspecified; F41.9 Anxiety disorder, unspecified; F32.9 Major depressive disorder, single episode, unspecified; E03.9 Hypothyroidism, unspecified; E11.42 Type 2 diabetes mellitus with diabetic polyneuropathy; N30.90 Cystitis, unspecified without hematuria; E83.42 Hypomagnesemia; E87.6 Hypokalemia; I11.0 Hypertensive heart disease with heart failure; I50.9 Heart failure, unspecified; Z90.49 Acquired absence of other specified parts of digestive tract; Z79.4 Long term (current) use of insulin; Z79.899 Other long term (current) drug therapy; Z88.5 Allergy status to narcotic agent; Z68.30 Body mass index [BMI] 30.0-30.9, adult
CPT/HCPCS: 10879